=== PATIENT | male | born 1945 | race Caucasian/White ===

== ENCOUNTER → 2016-10-05 | Outpatient (CLI) | payer BC ==
[~2016-10-05] MED LIST: AMLO-110 PO; ASPI81TA28 PO; ATOR-24 PO; CHOL200027 PO; CHOL20007 PO; CINA0.42 PO; CIPR-255 PO; CIPR1TAB11 PO; CYAN10005 PO; GLC/500 PO; GLIM1TAB2 PO; INSUINJ12 SC; LISI-794 PO; LOSA1TAB38 PO; LVMI SC; METF-384 PO; MULT-506 PO; OXYC-57 PO; PLV75 PO; SITA50TA5 PO; TUMERIC PO; TURM1CAP4 PO
[2016-10-05 12:55] LABS: ESTIMATED AVERAGE GLUCOSE 197 mg/dl; HA1C FLAG Normal (Normal)
== END | disposition home or self-care (01) ==
LOC: C.LABPBG 10:57
PROVIDERS: ATTEND Internal Medicine Endocrinology, Diabetes & Metabolism
DX: E11.9 Type 2 diabetes mellitus without complications (principal); E83.52 Hypercalcemia

== ENCOUNTER → 2016-10-09 | Outpatient (CLI) | payer BC ==
--- NOTE | 2016-10-09 12:56 | DIAGNOSTIC IMAGING REPORT ---
RIGHT HIP 2 VIEWS HISTORY: Hip pain, right Right COMPARISON: None. FINDINGS: There is no fracture or dislocation. Soft tissues are unremarkable. The visualized pelvic bones are intact. Vascular calcifications are noted. Mild cartilage space narrowing and marginal osteophytes within the right hip. There is also subchondral sclerosis within the superior aspect of the right hip. Findings are consistent with degenerative change. IMPRESSION: No fractures. Mild osteoarthritis within the right hip. Electronically signed by: Jim Albright M.D. 10/09/2016 12:54 PM Dictated Date/Time: 10/09/2016 12:53 PM
--- NOTE | 2016-10-09 12:57 | DIAGNOSTIC IMAGING REPORT ---
SI JOINTS 3 OR MORE VIEWS CLINICAL HISTORY: Right hip and lower back pain COMPARISON STUDY: No previous studies for comparison. FINDINGS: No fractures are visualized. There is no SI joint fusion. There are no erosive changes. IMPRESSION: Age-related change. No evidence of fracture. No evidence of erosive disease. Electronically signed by: Jun Hsu M.D. 10/09/2016 12:55 PM Dictated Date/Time: 10/09/2016 12:54 PM
== END | disposition home or self-care (01) ==
LOC: C.RADBC 12:17
PROVIDERS: ATTEND Physician Assistant Medical
DX: M25.551 Pain in right hip (principal)

== ENCOUNTER → 2016-11-23 | Outpatient (CLI) | payer BC ==
[2016-11-23 17:21] LABS: BASO % 0.3 %; BASO ABS # 0.02 K/uL (0-0.2); COMPLETE YES; EOS % 2.6 %; HEMATOCRIT 40.1 % (42-52); IG% 0.2 %; LYMPH % 39.9 %; LYMPH ABS # 2.59 K/uL (1.2-3.4); MEAN CELL VOLUME 93.9 fL (80-100); MEAN CORPUSCULAR HEMOGLOBIN 31.1 pg (25-34); MEAN CORPUSCULAR HGB CONC 33.2 g/dl (32-36); MEAN PLATELET VOLUME 10.6 fL (7.4-10.4); MONO % 7.7 %; NEUT % 49.3 %; PLATELET COUNT 163 K/uL (130-400); RED BLOOD COUNT 4.27 M/uL (4.7-6.1); WHITE BLOOD COUNT 6.49 K/uL (4.8-10.8)
[2016-11-23 17:35] LABS: BLOOD UREA NITROGEN 17 mg/dl (7-18); BUN/CREATININE RATIO 14.5 (10-20); CALCIUM 9.6 mg/dl (8.5-10.1); CARBON DIOXIDE 25 mmol/L (21-32); CHLORIDE 111 mmol/L (98-107); GLUCOSE 138 mg/dl (70-99); POTASSIUM 4.2 mmol/L (3.5-5.1); SODIUM 145 mmol/L (136-145)
[2016-11-24 06:36] LABS: ESTIMATED AVERAGE GLUCOSE 169 mg/dl; HA1C FLAG Normal (Normal)
== END | disposition home or self-care (01) ==
LOC: C.LABPBG 14:49
PROVIDERS: ATTEND Internal Medicine Endocrinology, Diabetes & Metabolism
DX: I10 Essential (primary) hypertension (principal); M19.90 Unspecified osteoarthritis, unspecified site; E11.9 Type 2 diabetes mellitus without complications; D64.9 Anemia, unspecified; E55.9 Vitamin D deficiency, unspecified; E83.52 Hypercalcemia

== ENCOUNTER 2017-03-22 07:42 | Inpatient (IN) | payer BC, OTHER ==
[~2017-03-22] VITALS: Ht 175.3 cm; Wt 89.0 kg
[~2017-03-22 07:42] MED LIST changes: -CHOL200027 PO; -CYAN10005 PO; -GLC/500 PO; -LOSA1TAB38 PO; -LVMI SC; -METF-384 PO; -MULT-506 PO; -PLV75 PO; -TUMERIC PO; -TURM1CAP4 PO
[2017-03-22] MEDS ORDERED: ATOR-24 PO (08:15)
[2017-03-22] MEDS ORDERED: MULT-506 PO (08:15)
[2017-03-22] MEDS ORDERED: GLC/500 PO (08:15)
[2017-03-22] MEDS ORDERED: AMLO-110 PO (08:15)
[2017-03-22] MEDS ORDERED: CYAN10005 PO (08:15)
[2017-03-22] MEDS ORDERED: CHOL200027 PO (08:15)
[2017-03-22] MEDS ORDERED: TUMERIC PO (08:15)
[2017-03-22] MEDS ORDERED: METF-384 PO (08:15)
[2017-03-22] MEDS ORDERED: ASPI81TA28 PO (08:15)
[2017-03-22] MEDS ORDERED: LOSA1TAB38 PO (08:15)
[2017-03-22] MEDS ORDERED: LVMI SC (08:15)
[2017-03-22] MEDS ORDERED: TURM1CAP4 PO (08:17)
--- NOTE | 2017-03-22 08:18 | DIAGNOSTIC IMAGING REPORT ---
CT SCAN OF THE BRAIN WITHOUT IV CONTRAST CLINICAL HISTORY: Weakness. Change in mental status. COMPARISON STUDY: No priors. TECHNIQUE: Unenhanced axial CT scan of the brain is performed from the vertex to the skull base. CT DOSE: 537.48 mGy.cm FINDINGS: Brain parenchyma: There are age-related involutional changes noting mild subcortical and periventricular microangiopathic change. A small focus of left cerebellar encephalomalacia is consistent with a remote infarct. An age indeterminant lacunar infarct is also seen in the left basal ganglia. There is no hemorrhage, mass effect, or evidence of acute territorial ischemia by CT criteria. Rob-white matter is preserved. No extra-axial fluid collection is seen. Ventricles, sulci, cisterns: Prominent secondary to involutional change. Intracranial vasculature: There is atherosclerotic calcification of the cavernous carotid arteries. Calvarium: Unremarkable. Sinuses and mastoids: The visualized paranasal sinuses are clear. The mastoid air cells are well pneumatized. Orbits: The bony orbits are grossly intact. IMPRESSION: There is no hemorrhage, mass effect, or evidence of acute territorial ischemia by CT criteria. Electronically signed by: Petey Sosa M.D. 03/22/2017 8:16 AM Dictated Date/Time: 03/22/2017 8:12 AM
[2017-03-22 08:22] LABS: BASO % 0.6 %; BASO ABS # 0.03 K/uL (0-0.2); COMPLETE YES; EOS % 2.4 %; HEMATOCRIT 41.7 % (42-52); IG% 0.4 %; LYMPH ABS # 2.16 K/uL (1.2-3.4); MEAN CELL VOLUME 92.3 fL (80-100); MEAN CORPUSCULAR HEMOGLOBIN 30.5 pg (25-34); MEAN CORPUSCULAR HGB CONC 33.1 g/dl (32-36); MEAN PLATELET VOLUME 10.3 fL (7.4-10.4); MONO % 7.2 %; NEUT % 49.4 %; PLATELET COUNT 156 K/uL (130-400); RED BLOOD COUNT 4.52 M/uL (4.7-6.1)
--- NOTE | 2017-03-22 08:23 | DIAGNOSTIC IMAGING REPORT ---
SINGLE VIEW CHEST CLINICAL HISTORY: Weakness. Change in mental status. FINDINGS: An AP, portable, upright chest radiograph is compared to study dated 04/25/2015. The cardiomediastinal silhouette is unremarkable. There is atherosclerotic calcification of the thoracic aorta. There is mild elevation of left hemidiaphragm with left basilar atelectasis. No airspace consolidation is seen typical for pneumonia and there is no large pleural effusion. No pneumothorax is seen. The bony thorax is grossly intact. IMPRESSION: No acute cardiopulmonary abnormality. Electronically signed by: Petey Sosa M.D. 03/22/2017 8:22 AM Dictated Date/Time: 03/22/2017 8:21 AM
[2017-03-22 08:27] LABS: URINE APPEARANCE CLEAR (CLEAR); URINE BILIRUBIN NEG (NEG); URINE COLOR YELLOW; URINE EPITHELIAL CELL AUTO 0-5 /lpf (0-5); URINE NITRITE NEG (NEG); UROBILINOGEN NEG (NEG); ZZUR CULT IF INDIC CLEAN CATCH NO
[2017-03-22 08:28] LABS: MANUAL MICROSCOPIC REQUIRED? NO; REVIEW REQ? YES
[2017-03-22 08:30] LABS: PROTHROMBIN TIME (PATIENT) 10.7 SECONDS (9.0-12.0)
[2017-03-22 08:47] LABS: ALT/SGPT 31 U/L (12-78); BLOOD UREA NITROGEN 13 mg/dl (7-18); BUN/CREATININE RATIO 12.9 (10-20); CALCIUM 9.7 mg/dl (8.5-10.1); CARBON DIOXIDE 23 mmol/L (21-32); CHLORIDE 110 mmol/L (98-107); GLUCOSE 194 mg/dl (70-99); MAGNESIUM 1.5 mg/dl (1.8-2.4); POTASSIUM 3.8 mmol/L (3.5-5.1); SODIUM 142 mmol/L (136-145)
[2017-03-22 08:55] LABS: ALKALINE PHOSPHATASE 86 U/L (45-117); AST/SGOT 34 U/L (15-37); CKMB/CK RATIO 0.7 (0-3.0)
[2017-03-22] MEDS ORDERED: ACETAMINOPHEN 325 MG TAB PO STA (09:16)
--- NOTE | 2017-03-22 09:24 | History and Physical ---
History & Physical Date & Time of Service: Mar 22, 2017 at 09:09 Chief Complaint: No Movement In Right Hand Primary Care Physician: Brando Bourgeois M.D. History of Present Illness Mr. Lambert noticed at 5:30 this morning that he was experiencing right hand weakness when using his remote control. He also had associated right facial droop. He did not have any aphasia or slurring of speech or other symptoms and his did not notice that he was different. He took a baby aspirin at home. Symptoms resolved after getting to the emergency department at about 0800. He has never had a stroke or TIA in the past and has no cardiac history. Hx DMII with insulin, chews tobacco x 60 years, htn, hyperlipidemia, siatica with 3 injections in the past 2 months, right knee arthroplasty 2010, Justice's cyst right leg. Past Medical/Surgical History Medical Problems: (1) Diabetes Status: Chronic (2) HTN (hypertension) Status: Chronic (3) Hyperlipemia Status: Chronic Surgical Problems: (1) H/O: knee surgery Status: Resolved Family History Patient reports no known family medical history. Mother of Alzheimers Father of old age Brother with no significant medical history Two daughters and a son - one daughter and one son are diabetic Type II Granddaughter with Type I diabetes. Social History Smoking Status: Never Smoker Smokeless Tobacco Use: Yes Alcohol Use: socially Drug Use: none Marital Status: Housing status: lives with significant other Occupational Status: retired Immunizations History of Influenza Vaccine: Yes Influenza Vaccine Date: Mar 31, 2006 History of Tetanus Vaccine?: Yes History of Pneumococcal: Yes Pneumococcal Date: Mar 31, 2006 History of Hepatitis B Vaccine: No Multi-Drug Resistant Organisms History of MDRO: No Allergies Coded Allergies: No Known Allergies (Verified , 03/22/17) Home Medications Scheduled Amlodipine (Norvasc), 5 MG PO DAILY Aspirin (Aspirin Ec), 81 MG PO DAILY Atorvastatin (Lipitor), 40 MG PO DAILY Cholecalciferol (Vitamin D-3), 2,000 UNITS PO DAILY Cyanocobalamin (Vitamin B-12), 1,000 MCG PO DAILY Insulin Detemir (Levemir), 50 UNITS SC BID Losartan Potassium (Cozaar), 100 MG PO DAILY Metformin Hcl (Glucophage), 500 MG PO QAM Metformin Hcl (Glucophage), 1,000 MG PO QPM Multivitamin (Multivitamin), 1 TAB PO DAILY Turmeric (Curcuma Longa) (Turmeric), 500 MG PO DAILY Review of Systems Constitutional: No chills, No sweats Eyes: No worsening of vision Respiratory: No shortness of breath Cardiovascular: No chest pain Abdomen: No nausea, No vomiting, No diarrhea, No constipation Neurologic: + weakness, + numbness/tingling Physical Exam Vital Signs Date Time Temp Pulse Resp B/P (MAP) Pulse Ox O2 Delivery O2 Flow Rate FiO2 03/22/17 09:07 62 20 146/82 99 Room Air 03/22/17 08:02 59 03/22/17 07:43 36.6 77 20 166/96 97 Room Air General: no distress Eyes: normal inspection, PERLL Respiratory: chest non tender, clear to auscultation, normal breath sounds, no respiratory distress, no accessory muscle use Cardiac: regular rate and rhythm, no rub or gallop, no murmur, no edema, no jvd GI/: active bowel sounds, no abd pain or tenderness, soft, non distended Extremities: normal range of motion, normal strength, non tender Neuro/Psych: alert and oriented x 3, normal mood and affect Skin: normal color, dry Diagnostics Laboratory Results Results Past 24 Hours Test 03/22/17 08:00 Range/Units White Blood Count 5.40 4.8-10.8 K/uL Red Blood Count 4.52 4.7-6.1 M/uL Hemoglobin 13.8 14.0-18.0 g/dL Hematocrit 41.7 42-52 % Mean Corpuscular Volume 92.3 80-100 fL Mean Corpuscular Hemoglobin 30.5 25-34 pg Mean Corpuscular Hemoglobin Concent 33.1 32-36 g/dl Platelet Count 156 130-400 K/uL Mean Platelet Volume 10.3 7.4-10.4 fL Neutrophils (%) (Auto) 49.4 % Lymphocytes (%) (Auto) 40.0 % Monocytes (%) (Auto) 7.2 % Eosinophils (%) (Auto) 2.4 % Basophils (%) (Auto) 0.6 % Neutrophils # (Auto) 2.67 1.4-6.5 K/uL Lymphocytes # (Auto) 2.16 1.2-3.4 K/uL Monocytes # (Auto) 0.39 0.11-0.59 K/uL Eosinophils # (Auto) 0.13 0-0.5 K/uL Basophils # (Auto) 0.03 0-0.2 K/uL RDW Standard Deviation 43.3 36.4-46.3 fL RDW Coefficient of Variation 12.9 11.5-14.5 % Immature Granulocyte % (Auto) 0.4 % Immature Granulocyte # (Auto) 0.02 0.00-0.02 K/uL Prothrombin Time 10.7 9.0-12.0 SECONDS Prothromb Time International Ratio 1.0 0.9-1.1 Activated Partial Thromboplast Time 25.0 21.0-31.0 SECONDS Partial Thromboplastin Ratio 1.0 Urine Color YELLOW Urine Appearance CLEAR CLEAR Urine pH 5.0 4.5-7.5 Urine Specific [place] 1.030 1.000-1.030 Urine Protein NEG NEG Urine Glucose (UA) 2+ NEG Urine Ketones TRACE NEG Urine Occult Blood NEG NEG Urine Nitrite NEG NEG Urine Bilirubin NEG NEG Urine Urobilinogen NEG NEG Urine Leukocyte Esterase NEG NEG Urine WBC (Auto) 1-5 0-5 /hpf Urine RBC (Auto) 0-4 0-4 /hpf Urine Hyaline Casts (Auto) 0 0-5 /lpf Urine Epithelial Cells (Auto) 0-5 0-5 /lpf Urine Bacteria (Auto) NEG NEG Urine Crystals CALCIUM OXALATE NONE PRSENT Sodium Level 142 136-145 mmol/L Potassium Level 3.8 3.5-5.1 mmol/L Chloride Level 110 98-107 mmol/L Carbon Dioxide Level 23 21-32 mmol/L Anion Gap 9.0 3-11 mmol/L Blood Urea Nitrogen 13 7-18 mg/dl Creatinine 1.00 0.60-1.40 mg/dl Est Creatinine Clear Calc Drug Dose 75.6 ml/min Estimated GFR () 87.4 Estimated GFR (Non- 75.4 BUN/Creatinine Ratio 12.9 10-20 Random Glucose 194 70-99 mg/dl Calcium Level 9.7 8.5-10.1 mg/dl Magnesium Level 1.5 1.8-2.4 mg/dl Total Bilirubin 0.8 0.2-1 mg/dl Direct Bilirubin 0.2 0-0.2 mg/dl Aspartate Amino Transf (AST/SGOT) 34 15-37 U/L Alanine Aminotransferase (ALT/SGPT) 31 12-78 U/L Alkaline Phosphatase 86 45-117 U/L Total Creatine Kinase 86 39-308 U/L Creatine Kinase MB 0.6 0.5-3.6 ng/ml Creatine Kinase MB Ratio 0.7 0-3.0 Troponin I < 0.015 0-0.045 ng/ml Total Protein 7.4 6.4-8.2 gm/dl Albumin 4.0 3.4-5.0 gm/dl Lipase 524 73-393 U/L Thyroid Stimulating Hormone (TSH) 2.520 0.300-4.500 uIu/ml Diagnostic Radiology SINGLE VIEW CHEST CLINICAL HISTORY: Weakness. Change in mental status. FINDINGS: An AP, portable, upright chest radiograph is compared to study dated 04/25/2015. The cardiomediastinal silhouette is unremarkable. There is atherosclerotic calcification of the thoracic aorta. There is mild elevation of left hemidiaphragm with left basilar atelectasis. No airspace consolidation is seen typical for pneumonia and there is no large pleural effusion. No pneumothorax is seen. The bony thorax is grossly intact. IMPRESSION: No acute cardiopulmonary abnormality. CT SCAN OF THE BRAIN WITHOUT IV CONTRAST CLINICAL HISTORY: Weakness. Change in mental status. COMPARISON STUDY: No priors. TECHNIQUE: Unenhanced axial CT scan of the brain is performed from the vertex to the skull base. CT DOSE: 537.48 mGy.cm FINDINGS: Brain parenchyma: There are age-related involutional changes noting mild subcortical and periventricular microangiopathic change. A small focus of left cerebellar encephalomalacia is consistent with a remote infarct. An age indeterminant lacunar infarct is also seen in the left basal ganglia. There is no hemorrhage, mass effect, or evidence of acute territorial ischemia by CT criteria. Rob-white matter is preserved. No extra-axial fluid collection is seen. Ventricles, sulci, cisterns: Prominent secondary to involutional change. Intracranial vasculature: There is atherosclerotic calcification of the cavernous carotid arteries. Calvarium: Unremarkable. Sinuses and mastoids: The visualized paranasal sinuses are clear. The mastoid air cells are well pneumatized. Orbits: The bony orbits are grossly intact. IMPRESSION: There is no hemorrhage, mass effect, or evidence of acute territorial ischemia by CT criteria. Impression Assessment and Plan Mr. Lambert is a 71 year old man here for TIA. His symptoms which included right hand weakness and right facial droop lasted about two hours and have resolved at this point. CT of the head showed a remote left cerebellar infarct and left age indeterminate basal ganglia lacunar infarct. TIA - admit observation to the telemetry unit - A1c, lipids, troponin, prp and cbc in the morning - MRI head, carotid doppler, echocardiogram - continue ASA - AHA diet HTN - home htn meds held for now. 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 Discussed with yCn Bourgeois NP and agree with findings and plan as documented in the note. Any exceptions or clarifications are listed here: None Patient presented with transient neurological symptoms found to have fairly poorly controlled diabetes and a new evidence of likely embolic stroke. Vital signs are stable No evidence of recurrent neurological dysfunction will continue with secondary stroke prevention neurologic consult. It escalated his aspirin to full dose continuing high potency statin, no significant carotid disease or embolic source seen within heart although intra-arterial shunt could not be determined on transthoracic echo After PT OT evaluation the patient may return home with close outpatient follow- up Documented By: Eliseo Fernandez Advanced Directives Existing Advance Directive: No Existing Living Will: No Existing Power of Caretaker Grounds: No Existing Health Care Proxy: No Resuscitation Status FULL RESUSCITATION (does not want life support if there is no chance of meaningful recovery) VTE Prophylaxis Risk Level: Moderate Given or contraindicated: Enoxaparin (Lovenox)SQ Social Service Consult None Apply
[2017-03-22] MEDS ORDERED: PHARMACIST DISCHARGE MED REC CONSULT PRN (09:45)
[2017-03-22 09:57] VITALS: O2SAT 99; BMI 29.6
[2017-03-22] MEDS ORDERED: HydrALAZINE HCL 20 MG/ML VIAL IV. PRN (10:15)
[2017-03-22] MEDS ORDERED: LORAZEPAM 2 MG/ML 1 ML VIAL IV STA (10:21)
--- NOTE | 2017-03-22 10:37 | EMERGENCY ROOM VISIT NOTE ---
History Report prepared by Criselda: Pratik Burks Under the Supervision of: Dr. Bo Lisa D.O. First contact with patient: 07:54 Chief Complaint: STROKE SYMPTOMS Stated Complaint: NO MOVEMENT IN RIGHT HAND Nursing Triage Summary: patient states about 0600 today he woke up and was unable to bobj developer things with his right hand. I think the right side of my face was drooping as well. symptoms lasted about 30 mins. my right hand still feels numb and weak. History of Present Illness The patient is a 71 year old male who presents to the Emergency Room with complaints of improving right hand neurologic symptoms beginning 2.5 hours ago. The patient's symptoms include weakness and numbness. He states that he was unable to move his fingers, and was unable to operate the TV remote. He notes that his entire arm felt abnormal as well. The patient states that he woke up three hours ago, and noticed his symptoms about a half hour later. He also complains of resolved mild right sided facial droop and problems with balance. He denies any visual changes, confusion, or slurred speech. The patient is on baby aspirin, but denies any other blood thinner use. Source of History: patient Onset: 2.5 hours ago Position: hand (right) Quality: numbness, other (weakness) Timing: other (improving) Note: The patient also complains of resolved mild right sided facial droop and problems with balance. He denies any visual changes, confusion, or slurred speech. Review of Systems See HPI for pertinent positives & negatives. A total of 10 systems reviewed and were otherwise negative. Past Medical & Surgical Medical Problems: (1) Diabetes (2) HTN (hypertension) (3) Hyperlipemia (4) TIA (transient ischemic attack) Surgical Problems: (1) H/O: knee surgery Family History Patient reports no known family medical history. Social History Smoking Status: Never Smoker Marital Status: Housing Status: lives with family Occupation Status: retired Current/Historical Medications Scheduled Amlodipine (Norvasc), 5 MG PO DAILY Aspirin (Aspirin Ec), 81 MG PO DAILY Atorvastatin (Lipitor), 40 MG PO DAILY Cholecalciferol (Vitamin D-3), 2,000 UNITS PO DAILY Cyanocobalamin (Vitamin B-12), 1,000 MCG PO DAILY Insulin Detemir (Levemir), 50 UNITS SC BID Losartan Potassium (Cozaar), 100 MG PO DAILY Metformin Hcl (Glucophage), 500 MG PO QAM Metformin Hcl (Glucophage), 1,000 MG PO QPM Multivitamin (Multivitamin), 1 TAB PO DAILY Turmeric (Curcuma Longa) (Turmeric), 500 MG PO DAILY Allergies Coded Allergies: No Known Allergies (Verified , 03/22/17) Physical Exam Vital Signs Date Time Temp Pulse Resp B/P (MAP) Pulse Ox O2 Delivery O2 Flow Rate FiO2 03/22/17 09:57 99 Room Air 03/22/17 09:46 62 20 152/74 99 Room Air 03/22/17 09:07 62 20 146/82 99 Room Air 03/22/17 08:02 59 03/22/17 07:43 36.6 77 20 166/96 97 Room Air Physical Exam VITAL SIGNS: were reviewed as above. GENERAL:Non-toxic in appearance. SKIN: Warm dry and pink. HEAD: Normocephalic and atraumatic. OROPHARYNX: Is clear and moist NECK: Supple without lymphadenopathy or meningismus. LUNGS: clear. HEART: Regular rate and rhythm. ABDOMEN: Soft and nontender. EXTREMITIES: Warm and well perfused. NEUROLOGICALLY: Awake alert and oriented without focal deficit. Cranial nerves 2 -12 are intact. There is no pronator drift. Cerebellar testing is within normal limits. There is no nystagmus. There is no facial droop. Speech is clear. Vision is grossly normal. MUSCULOSKELETAL: Good muscle tone. No evidence of trauma. Medical Decision & Procedures ER Provider Diagnostic Interpretation: Radiology results as stated below per my review and radiologist interpretation: CT SCAN OF THE BRAIN WITHOUT IV CONTRAST FINDINGS: Brain parenchyma: There are age-related involutional changes noting mild subcortical and periventricular microangiopathic change. A small focus of left cerebellar encephalomalacia is consistent with a remote infarct. An age indeterminant lacunar infarct is also seen in the left basal ganglia. There is no hemorrhage, mass effect, or evidence of acute territorial ischemia by CT criteria. Rob-white matter is preserved. No extra-axial fluid collection is seen. Ventricles, sulci, cisterns: Prominent secondary to involutional change. Intracranial vasculature: There is atherosclerotic calcification of the cavernous carotid arteries. Calvarium: Unremarkable. Sinuses and mastoids: The visualized paranasal sinuses are clear. The mastoid air cells are well pneumatized. Orbits: The bony orbits are grossly intact. IMPRESSION: There is no hemorrhage, mass effect, or evidence of acute territorial ischemia by CT criteria. Electronically signed by: Petey Sosa M.D. 03/22/2017 8:16 AM SINGLE VIEW CHEST FINDINGS: An AP, portable, upright chest radiograph is compared to study dated 04/25/2015. The cardiomediastinal silhouette is unremarkable. There is atherosclerotic calcification of the thoracic aorta. There is mild elevation of left hemidiaphragm with left basilar atelectasis. No airspace consolidation is seen typical for pneumonia and there is no large pleural effusion. No pneumothorax is seen. The bony thorax is grossly intact. IMPRESSION: No acute cardiopulmonary abnormality. Electronically signed by: Petey Sosa M.D. 03/22/2017 8:22 AM Laboratory Results 03/22/17 08:00 Red Blood Count 4.52, Mean Corpuscular Volume 92.3, Mean Corpuscular Hemoglobin 30.5, Mean Corpuscular Hemoglobin Concent 33.1, Mean Platelet Volume 10.3, Neutrophils (%) (Auto) 49.4, Lymphocytes (%) (Auto) 40.0, Monocytes (%) (Auto) 7.2, Eosinophils (%) (Auto) 2.4, Basophils (%) (Auto) 0.6, Neutrophils # (Auto) 2.67, Lymphocytes # (Auto) 2.16, Monocytes # (Auto) 0.39, Eosinophils # (Auto) 0.13, Basophils # (Auto) 0.03 03/22/17 08:00 Test 03/22/17 08:00 03/22/17 09:32 White Blood Count 5.40 K/uL (4.8-10.8) Red Blood Count 4.52 M/uL (4.7-6.1) Hemoglobin 13.8 g/dL (14.0-18.0) Hematocrit 41.7 % (42-52) Mean Corpuscular Volume 92.3 fL (80-100) Mean Corpuscular Hemoglobin 30.5 pg (25-34) Mean Corpuscular Hemoglobin Concent 33.1 g/dl (32-36) Platelet Count 156 K/uL (130-400) Mean Platelet Volume 10.3 fL (7.4-10.4) Neutrophils (%) (Auto) 49.4 % Lymphocytes (%) (Auto) 40.0 % Monocytes (%) (Auto) 7.2 % Eosinophils (%) (Auto) 2.4 % Basophils (%) (Auto) 0.6 % Neutrophils # (Auto) 2.67 K/uL (1.4-6.5) Lymphocytes # (Auto) 2.16 K/uL (1.2-3.4) Monocytes # (Auto) 0.39 K/uL (0.11-0.59) Eosinophils # (Auto) 0.13 K/uL (0-0.5) Basophils # (Auto) 0.03 K/uL (0-0.2) RDW Standard Deviation 43.3 fL (36.4-46.3) RDW Coefficient of Variation 12.9 % (11.5-14.5) Immature Granulocyte % (Auto) 0.4 % Immature Granulocyte # (Auto) 0.02 K/uL (0.00-0.02) Prothrombin Time 10.7 SECONDS (9.0-12.0) Prothromb Time International Ratio 1.0 (0.9-1.1) Activated Partial Thromboplast Time 25.0 SECONDS (21.0-31.0) Partial Thromboplastin Ratio 1.0 Urine Color YELLOW Urine Appearance CLEAR (CLEAR) Urine pH 5.0 (4.5-7.5) Urine Specific [place] 1.030 (1.000-1.030) Urine Protein NEG (NEG) Urine Glucose (UA) 2+ (NEG) Urine Ketones TRACE (NEG) Urine Occult Blood NEG (NEG) Urine Nitrite NEG (NEG) Urine Bilirubin NEG (NEG) Urine Urobilinogen NEG (NEG) Urine Leukocyte Esterase NEG (NEG) Urine WBC (Auto) 1-5 /hpf (0-5) Urine RBC (Auto) 0-4 /hpf (0-4) Urine Hyaline Casts (Auto) 0 /lpf (0-5) Urine Epithelial Cells (Auto) 0-5 /lpf (0-5) Urine Bacteria (Auto) NEG (NEG) Urine Crystals CALCIUM OXALATE (NONE Anion Gap 9.0 mmol/L (3-11) Est Creatinine Clear Calc Drug Dose 75.6 ml/min Estimated GFR () 87.4 Estimated GFR (Non- 75.4 BUN/Creatinine Ratio 12.9 (10-20) Calcium Level 9.7 mg/dl (8.5-10.1) Magnesium Level 1.5 mg/dl (1.8-2.4) Total Bilirubin 0.8 mg/dl (0.2-1) Direct Bilirubin 0.2 mg/dl (0-0.2) Aspartate Amino Transf (AST/SGOT) 34 U/L (15-37) Alanine Aminotransferase (ALT/SGPT) 31 U/L (12-78) Alkaline Phosphatase 86 U/L (45-117) Total Creatine Kinase 86 U/L (39-308) Creatine Kinase MB 0.6 ng/ml (0.5-3.6) Creatine Kinase MB Ratio 0.7 (0-3.0) Troponin I < 0.015 ng/ml (0-0.045) Total Protein 7.4 gm/dl (6.4-8.2) Albumin 4.0 gm/dl (3.4-5.0) Lipase 524 U/L (73-393) Thyroid Stimulating Hormone (TSH) 2.520 uIu/ml (0.300-4.500) Laboratory results as stated above per my review. Medications Administered Medications (Trade) Dose Ordered Sig/Mat Route Start Time Stop Time Status Last Admin Dose Admin Acetaminophen (Tylenol Tab) 650 mg NOW STAT PO 03/22/17 09:16 03/22/17 09:40 DC 03/22/17 09:43 650 MG ECG Indication: other (neurologic symptoms ) Rate (beats per minute): 62 Rhythm: sinus rhythm Findings: PAC, no acute ischemic change ED Course 0817: Previous medical records were reviewed. The patient was evaluated in room B12B. A complete history and physical examination was performed. 0850: On reevaluation, the patient is resting comfortably. I discussed the results and findings with him. He verbalized agreement of the treatment plan. I spoke with Dr. Fernandez of the [facility] Hospitalist Service. The patient will be evaluated for further management and care. Medical Decision Differential includes acute coronary syndrome, myocardial infarction, CVA, TIA, anemia, infection, pneumonia, UTI, pyelonephritis, poor nutrition, dehydration, electrolyte disturbance,hypoglycemia. This is a 71-year-old male who presents to the ED with a chief complaint of CVA- like symptoms. The patient states that around 6 AM he developed a sudden onset of loss of function of his right hand and felt weak in his arm and slight facial droop in his right face. He may have also felt weakness in his right leg but this was more difficult for him to tell due to some chronic issues with his right leg. The patient states that he took some aspirin and came to the ED for evaluation. His initial blood pressure was slightly elevated at 166/96. The patient states that his symptoms have improved upon my evaluation. His complete neuro exam on my evaluation was normal. He states that he has now regained use of his arm and hand. A CT scan of the brain did not show acute process. A chest x-ray is negative for acute disease. Blood work including a CBC and chemistry panel was unremarkable. Urine did not show infection. EKG shows a normal sinus rhythm. The patient was told the results. Because of his symptoms, the patient was seen for further inpatient evaluation and care. Consults Time Called: [phone] Consulting Physician: Dr. Fernandez -[facility] Returned Call: [phone] Discussed the patient's case. The patient will be evaluated for further treatment and disposition. Impression Primary Impression: TIA (transient ischemic attack) Scribe Attestation The scribe's documentation has been prepared under my direction and personally reviewed by me in its entirety. I confirm that the note above accurately reflects all work, treatment, procedures, and medical decision making performed by me. Departure Information Dispostion Being Evaluated By Hospitalist Brando Ramirez M.D. (PCP) Patient Instructions My [facility]
[2017-03-22] MEDS: INSULIN ASPART 100 UNITS/ML 3 ML PEN SC SCH ×3 (11:00→20:34)
[2017-03-22] MEDS ORDERED: PERFLUTREN LIPID MICROSPHERE (DEFINITY) IV ONE (11:25)
[2017-03-22 11:30] VITALS: BP 174/83; PULSE 57; TEMP 36.7; O2SAT 94
--- NOTE | 2017-03-22 11:32 | DIAGNOSTIC IMAGING REPORT ---
ULTRASOUND OF THE CAROTID ARTERIES CLINICAL HISTORY: Transient ischemic attack COMPARISON STUDY: None. TECHNIQUE: Real-time, grayscale, and color Doppler sonography of the carotid arteries was performed. Imaging reviewed in the transverse and longitudinal planes. NASCET criteria was utilized for stenosis calcification. FINDINGS: There is mild to moderate atherosclerotic plaque present . The peak systolic velocity within the right internal carotid artery is 75 cm/sec. The systolic velocity ratio of right internal to common carotid artery is 1.1. The peak systolic velocity within the left internal carotid artery is 63 cm/sec. The systolic velocity ratio left internal to common carotid artery is 1.1. Antegrade flow is seen in the vertebral arteries. The external carotid arteries are patent. . IMPRESSION: No evidence of hemodynamically significant carotid stenosis. Electronically signed by: Jun Hsu M.D. 03/22/2017 11:31 AM Dictated Date/Time: 03/22/2017 11:29 AM
[2017-03-22] MEDS ORDERED: DEXTROSE 50% 50 ML SYR IV PRN (11:45)
[2017-03-22] MEDS ORDERED: GLUCAGON FOR INJ 1 MG VIAL SQ PRN (11:45)
[2017-03-22] MEDS ORDERED: GLUCOSE 40% GEL 15 GM TUBE PO PRN (11:45)
[2017-03-22] MEDS ORDERED: GLUCOSE 10 TABS/TUBE PO PRN (11:45)
--- NOTE | 2017-03-22 12:07 | ECHOCARDIOGRAM REPORT ---
*NOTICE TO RECEIVING REPUBLICAN AGENCY This information is strictly Confidential and protected under [place] law. [place] law prohibits you from making any further disclosure of this information unless further disclosure is expressly permitted by the written consent of the person to whom it pertains or is authorized by law. A general authorization for the release of medical or other information is not sufficient for this purpose. Hospital accepts no responsibility if the information is made available to any other person, INCLUDING THE PATIENT. Interpretation Summary * Name: ROSLYN GAMBINO Study Date: 03/22/2017 10:15 AM BP: 152/74 mmHg * Patient Location: C.EDB HR: 62 * : 1945 (M/d/yyyy) Gender: Male Height: 69 in * Age: 71 yrs Ethnicity: CA Weight: 200 lb * Ordering Physician: Su Bourgeois * Performed By: Marina Cavazos * * Reason For Study: CEREBRAL ISCHEMIA/ EMBOLUS * BSA: 2.1 m2 * -- Conclusions -- * 1. Normal LV size, normal LV wall thickness. * 2. Normal LV function. LVEF 55-60%. Abnormal septal motion consistent with RV volume overload. * 3. Mildly dilated RV, normal RV function. * 4. Mild aortic regurgitation. * 5. Technically difficult saline contrast study - unable to rule out interatrial shunt. * 6. Mildly dilated ascending aorta (4.6 cm). * 7. No prior studies for comparison. Procedure Details * A complete two-dimensional transthoracic echocardiogram was performed (2D, M-mode, Doppler and color flow Doppler). * A saline contrast injection was performed to assess for cardiac shunting. * The injection was performed through an intravenous line in the left arm. * The attending nurse who injected the saline contrast was LAURA JARAMILLO RN. * A total of 20 cc of agitated saline was given. * A contrast injection of Definity was performed to improve assessment of LV function. * Contrast was injected into an intravenous site in the left arm. * One vial of Definity ultrasound contrast was diluted in normal saline to a total volume of 10 ml. A total of '3' ml of solution was administered during imaging. * Lot # [id number] of Definity utilized for procedure. * Expiration date 03/31. * The attending nurse who injected the contrast agent was LAURA JARAMILLO RN. Left Ventricle * The left ventricle is grossly normal size. * There is normal left ventricular wall thickness. * Ejection Fraction = 55-60%. * Paradoxical septal motion is consistent with right ventricular volume overload. Right Ventricle * The right ventricle is mildly dilated. * The right ventricular systolic function is normal as assessed by tricuspid annular plane systolic excursion (TAPSE) (normal >1.5 cm). Atria * The left atrial size is normal. * The right atrium is moderately dilated. * There is no evidence of atrial septal defect, but resolution does not allow assessment for a patent foramen ovale. * Saline contrast study performed - unable to rule out interatrial shunt. Mitral Valve * The mitral valve is grossly normal. * There is no mitral valve stenosis. * There is trace mitral regurgitation. Tricuspid Valve * The tricuspid valve is not well visualized. * Significant tricuspid regurgitation is absent. Aortic Valve * The aortic valve opens well. * No hemodynamically significant valvular aortic stenosis. * Mild aortic regurgitation. Pulmonic Valve * The pulmonary valve is inadequately visualized, but the Doppler data is adequate for interpretation. * Pulmonic stenosis is absent. Great Vessels * Mildly dilated ascending aorta. * Ascending aorta 4.6 cm Pericardium/Pleural * There is no pericardial effusion. Great Vessels * IVC > 2.1, >50% change with respiration. MMode 2D Measurements and Calculations IVSd 1.2 cm IVSs 1.6 cm LVIDd 5.0 cm LVIDs 3.5 cm LVPWd 1.0 cm LVPWs 1.8 cm IVS/LVPW 1.1 FS 31.3 % EDV(Teich) 120.8 ml ESV(Teich) 49.8 ml EF(Teich) 58.8 % EDV(cubed) 128.5 ml ESV(cubed) 41.8 ml EF(cubed) 67.5 % % IVS thick 36.2 % % LVPW thick 77.4 % LV mass(C)d 208.3 grams LV mass(C)dI 100.8 grams/m\S\2 LV mass(C)s 235.8 grams LV mass(C)sI 114.1 grams/m\S\2 CO(Teich) 3.8 l/min CI(Teich) 1.9 l/min/m\S\2 SV(Teich) 71.0 ml SI(Teich) 34.4 ml/m\S\2 CO(cubed) 4.7 l/min CI(cubed) 2.3 l/min/m\S\2 SV(cubed) 86.8 ml SI(cubed) 42.0 ml/m\S\2 ACS 1.6 cm asc Aorta Diam 4.5 cm LVOT diam 2.0 cm LVOT area 3.0 cm\S\2 LVAd ap4 34.0 cm\S\2 LVLd ap4 8.1 cm EDV(MOD-sp4) 117.0 ml LVAs ap4 18.8 cm\S\2 LVLs ap4 6.4 cm ESV(MOD-sp4) 45.4 ml EF(MOD-sp4) 61.2 % LVAd ap2 24.1 cm\S\2 LVLd ap2 7.2 cm EDV(MOD-sp2) 66.4 ml LVAs ap2 14.1 cm\S\2 LVLs ap2 6.4 cm ESV(MOD-sp2) 26.0 ml EF(MOD-sp2) 60.8 % CO(MOD-sp4) 3.9 l/min CI(MOD-sp4) 1.9 l/min/m\S\2 SV(MOD-sp4) 71.6 ml SI(MOD-sp4) 34.7 ml/m\S\2 CO(MOD-sp2) 2.2 l/min CI(MOD-sp2) 1.1 l/min/m\S\2 SV(MOD-sp2) 40.4 ml SI(MOD-sp2) 19.6 ml/m\S\2 Doppler Measurements and Calculations MV E max sonal 97.5 cm/sec MV A max sonal 95.1 cm/sec MV E/A 1.0 MV dec time 0.25 sec Ao V2 max 122.2 cm/sec Ao max PG 6.0 mmHg Ao max PG (full) 1.3 mmHg CHARLES(V,A) 2.7 cm\S\2 CHARLES(V,D) 2.7 cm\S\2 LV V1 max PG 4.6 mmHg LV V1 max 107.7 cm/sec MR max sonal 350.2 cm/sec MR max PG 49.1 mmHg PA V2 max 75.2 cm/sec PA max PG 2.3 mmHg
[2017-03-22] MEDS ORDERED: IV FLUIDS COMPLETED PRN (12:15)
[2017-03-22 12:28] LABS: ESTIMATED AVERAGE GLUCOSE 240 mg/dl; HA1C FLAG Normal (Normal)
[2017-03-22] MEDS ORDERED: LORAZEPAM INJ 1 MG in SYRINGE 0.5 ML IV STA (12:38)
--- NOTE | 2017-03-22 13:38 | DIAGNOSTIC IMAGING REPORT ---
MRI OF THE BRAIN WITHOUT CONTRAST CLINICAL HISTORY: Transient ischemic attack. RIGHT ARM APRAXIA. COMPARISON STUDY: Noncontrast head CT dated 03/22/2017 FINDINGS: Sagittal T1, axial diffusion, proton density and T2 weighted axial, coronal FLAIR, and axial T1-weighted images were acquired. No intra or extra-axial mass lesions are visualized There are very small foci of restricted water diffusion within the left frontal lobe, parietal lobe, and temporal lobes. The findings are consistent with small foci of acute/subacute infarction. There is no evidence of ventricular dilatation. Proton density T2-weighted and FLAIR images reveal scattered foci of increased T2 signal within the white matter, likely on a small vessel basis. There is an old left cerebellar infarct. There are atrophic changes with prominent subarachnoid space. There are no abnormal flow voids. IMPRESSION: Scattered very small foci of restricted water diffusion within the distribution of left middle cerebral artery, consistent with foci of acute/subacute infarction Electronically signed by: Jun Hsu M.D. 03/22/2017 1:37 PM Dictated Date/Time: 03/22/2017 1:33 PM
--- NOTE | 2017-03-22 13:39 | DIAGNOSTIC IMAGING REPORT ---
MR ANGIOGRAM OF THE BRAIN CLINICAL HISTORY: Stroke. COMPARISON STUDY: MRI of the brain performed concurrently on 03/22/2017. TECHNIQUE: 3-D [id number] MR angiography of the intracranial circulation is performed. 3-D tumble views are created and assessed. IV contrast was not administered for this examination. The examination is degraded by motion artifact. FINDINGS: The internal carotid arteries are widely patent bilaterally, as are the anterior and middle cerebral arteries. The vertebrobasilar system and posterior cerebral arteries are widely patent. The right vertebral artery is dominant. There is no aneurysm, high-grade stenosis, or focal vessel cutoff seen throughout the intracranial circulation. A chronic infarct is seen in the left cerebellar hemisphere. IMPRESSION: Unremarkable MR angiogram of the brain. Electronically signed by: Petey Sosa M.D. 03/22/2017 1:38 PM Dictated Date/Time: 03/22/2017 1:36 PM
[2017-03-22] MEDS: MAGNESIUM SULFATE 1GM / D5W 1 GM in PREMIXED IN D5W 100 ML IV SCH ×3 (15:14→17:20)
[2017-03-22 15:47] VITALS: BP 147/71; PULSE 62; TEMP 36.6; O2SAT 95
[2017-03-22 20:19] VITALS: BP 128/66; PULSE 61; TEMP 36.5; O2SAT 91
[2017-03-22] MEDS: INSULIN DETEMIR SC SCH (20:35)
[2017-03-22] MEDS ORDERED: ENOXAPARIN 40 MG/0.4 ML SYR SC SCH (21:00)
[2017-03-23] VITALS (7 sets, daily range): BP systolic 113–150; BP diastolic 52–84; PULSE 52–55; TEMP 36.6–36.7; O2SAT 94–96; Ht 175.3 cm; Wt 89.0 kg
[2017-03-23] MEDS: ACETAMINOPHEN 325 MG TAB PO PRN ×2 (00:09→09:44)
[2017-03-23] MEDS: INSULIN ASPART 100 UNITS/ML 3 ML PEN SC SCH ×3 (01:06→13:35)
[2017-03-23] MEDS ORDERED: LIDOCAINE HCL 2% 2 ML VIAL (20MG/ML) ONE (07:34)
[2017-03-23 07:58] LABS: BASO % 0.2 %; BASO ABS # 0.01 K/uL (0-0.2); COMPLETE YES; EOS % 2.9 %; HEMATOCRIT 38.5 % (42-52); IG% 0.2 %; LYMPH % 43.3 %; LYMPH ABS # 2.58 K/uL (1.2-3.4); MEAN CELL VOLUME 91.7 fL (80-100); MEAN CORPUSCULAR HEMOGLOBIN 30.5 pg (25-34); MEAN CORPUSCULAR HGB CONC 33.2 g/dl (32-36); MEAN PLATELET VOLUME 10.4 fL (7.4-10.4); MONO % 8.4 %; PLATELET COUNT 148 K/uL (130-400); WHITE BLOOD COUNT 5.96 K/uL (4.8-10.8)
[2017-03-23] MEDS: INSULIN DETEMIR SC SCH (08:34)
[2017-03-23 08:41] LABS: BUN/CREATININE RATIO 13.6 (10-20); CALCIUM 9.2 mg/dl (8.5-10.1); POTASSIUM 4.1 mmol/L (3.5-5.1)
[2017-03-23 08:44] LABS: CHOLESTEROL/HDL RATIO 2.9
[2017-03-23] MEDS ORDERED: ASPIRIN 81 MG ECTAB PO SCH (09:00)
[2017-03-23] MEDS ORDERED: ASPIRIN 325 MG ECTAB PO SCH (09:00)
[2017-03-23] MEDS ORDERED: CYANOCOBALAMIN 500 MCG TAB (VIT B-12) PO SCH (09:00)
[2017-03-23] MEDS ORDERED: MULTIVITAMIN TAB PO SCH (09:00)
[2017-03-23] MEDS ORDERED: ATORVASTATIN 40 MG TAB PO SCH (09:00)
[2017-03-23] MEDS ORDERED: OPTIRAY 320 IV PRN (09:00)
[2017-03-23] MEDS ORDERED: CHOLECALCIFEROL 1000 INTER.UNIT TAB PO SCH (09:00)
--- NOTE | 2017-03-23 09:18 | Neurology Consultation ---
Neurology Consultation Date of Consultation: Mar 23, 2017. Attending Physician: Eliseo Fernandez M.D. Primary Care Physician: Brando Bourgeois M.D. Reason for Consultation: Consultation for stroke History of Present Illness Source: patient, hospital records This is a 71-year-old right-handed male who presents with sudden onset of right hand weakness and facial droop yesterday morning. He reports that he was sitting in bed watching TV at about 5:30 AM when he went to reach for something on the table and found that he had trouble using his hand. He denied any weakness or neurological symptoms when he woke up that morning. Also noted to have a very mild right facial droop. He denied any numbness. He denied any weakness in his. He denied any new trouble with his walking or gait. He reports that for the last 6 years he's had trouble walking a straight line and his balance his been not as good as it used to be. He related it to his knee surgery at around that time. He denied any changes with his vision or vision loss. Denied any changes with his speech. Denied any trouble swallowing. Denied any chest pain or shortness of breath. Denies any heart palpitations. Reports that he has been taking baby aspirin for a number of years and has been compliant. Denies any history of strokes or TIAs in the past. He does chew tobacco on a regular basis. Patient reports that at around 9 or 9:30am yesterday morning he felt like his symptoms resolved. He reports that he is at his neurological baseline this morning. MRI of the brain report and images were reviewed by myself. Noted small scattered acute to subacute ischemic strokes in the left MCA territory. In addition noted small old left cerebellar stroke. Minimal T2 hyperintensities in the subcortical white matter indicative of small vessel ischemic disease. MRA of the brain was unremarkable Ultrasound of the carotids were unremarkable Echocardiogram noted mild dilated aorta and mild dilated right ventricle Hemoglobin A1c 10.0 Total cholesterol 114, LDL 39, HDL 39, triglycerides 178 Past Medical/Surgical History Past medical history: Diabetes type 2 insulin-dependent Hypertension Dyslipidemia Chews tobacco Sciatica Right knee surgery Multiple surgeries on right hand for trigger fingers Family History Mother with dementia Denies any family history of strokes or heart attacks Social History Is independent in his activities of daily living. Currently employed. Chews tobacco. No illegal drug use or stimulant supplement use. Smoking Status: Former smoker Smokeless Tobacco Use: Yes Alcohol Use: socially Drug Use: none Marital Status: Housing Status: lives with family Occupation Status: retired Allergies Coded Allergies: No Known Allergies (Verified , 03/22/17) Current Inpatient Medications Current Inpatient Medications Medications (Trade) Dose Ordered Sig/Mat Route Start Time Stop Time Status Last Admin Dose Admin Miscellaneous Information (Pharmacist Discharge Med Rec Consult) 1 ea UD PRN N/A 03/22/17 09:45 04/21/17 09:44 Enoxaparin Sodium (Lovenox Inj) 40 mg HS SC 03/22/17 21:00 04/21/17 20:59 03/22/17 20:30 40 MG Acetaminophen (Tylenol Tab) 650 mg Q4H PRN PO 03/22/17 09:45 04/21/17 09:44 03/23/17 00:09 650 MG Atorvastatin Calcium (Lipitor Tab) 40 mg DAILY PO 03/23/17 09:00 04/22/17 08:59 03/23/17 08:30 40 MG Cyanocobalamin (Vitamin B-12 Tab) 1,000 mcg DAILY PO 03/23/17 09:00 04/22/17 08:59 03/23/17 08:31 1,000 MCG Multivitamins (Multivitamin Tab) 1 tab DAILY PO 03/23/17 09:00 04/22/17 08:59 03/23/17 08:30 1 TAB Cholecalciferol (Vitamin D Tab) 2,000 inter.unit QAM PO 03/23/17 09:00 04/22/17 08:59 03/23/17 08:31 2,000 INTER.UNIT Insulin Detemir (Levemir Insulin) 50 units BID SC 03/22/17 21:00 04/21/17 20:59 03/23/17 08:34 50 UNITS Insulin Aspart (novoLOG ASPART) SLIDING SCALE If C... ACHS SC 03/22/17 11:00 04/21/17 10:59 03/23/17 08:33 1 UNITS Hydralazine HCl (HydrALAZINE INJ) 10 mg Q4H PRN IV. 03/22/17 10:15 04/21/17 10:14 Aspirin (Ecotrin Tab) 325 mg QAM PO 03/23/17 09:00 04/22/17 08:59 03/23/17 08:30 325 MG Glucose (Glucose 40% Gel) 15-30 GRAMS 15 GRAMS... UD PRN PO 03/22/17 11:45 04/21/17 11:44 Glucose (Glucose Chew Tab) 4-8 Tablets 4 Tabl... UD PRN PO 03/22/17 11:45 04/21/17 11:44 Dextrose (Dextrose 50% 50ML Syringe) 25-50ML OF 50% DW IV FOR... UD PRN IV 03/22/17 11:45 04/21/17 11:44 Glucagon (Glucagon Inj) 1 mg UD PRN SQ 03/22/17 11:45 04/21/17 11:44 Miscellaneous (Iv Fluids Completed) 1 ea PRN PRN N/A 03/22/17 12:15 03/22/18 12:14 Review of Systems Complete review of systems otherwise negative except for the above noted in history of present illness Physical Exam Vital Signs (Past 24 Hrs): Date Time Temp Pulse Resp B/P (MAP) Pulse Ox O2 Delivery O2 Flow Rate FiO2 03/23/17 07:20 36.6 52 16 115/67 (83) 95 Room Air 03/23/17 04:00 36.6 53 20 114/67 (83) 95 Room Air 03/23/17 04:00 Room Air 03/23/17 00:04 36.6 53 20 113/52 (72) 94 Room Air 03/23/17 00:00 Room Air 03/22/17 20:19 36.5 61 18 128/66 (86) 91 Room Air 03/22/17 20:00 Room Air 03/22/17 16:00 Room Air 03/22/17 15:47 36.6 62 18 147/71 (96) 95 Room Air 03/22/17 11:30 36.7 57 18 174/83 (113) 94 Room Air 03/22/17 10:43 52 20 141/66 99 03/22/17 09:57 99 Room Air 03/22/17 09:46 62 20 152/74 99 Room Air 03/22/17 09:07 62 20 146/82 99 Room Air Gen.: Patient is alert and sitting on side of bed, in no acute distress. HEENT: Normocephalic /atraumatic, no scleral icterus Heart: Regular rate and rhythm Extremities: No gross deformities or rashes noted Neurological examination: Mental status: Patient is alert and oriented x3. Attention and concentration normal for the situation. Good fund of knowledge. Able to give his own history. Speech is fluent without any dysarthria or aphasia noted Cranial nerve: Funduscopic examination was unremarkable. No papilledema. Pupils equally round and reactive to light. Extraocular muscles intact without nystagmus. No facial asymmetry noted. Facial sensation intact. Tongue is midline. Good palatal elevation. Good shoulder shrug bilaterally. Hearing grossly intact to voice. Strength: 5/5 both proximal and distally in all extremities. There is no arm drift. Tone is normal. Sensation: Grossly intact to light touch in all extremities. Mildly positive Romberg testing Deep tendon reflexes: +1 in bilateral biceps, brachioradialis and patellar. Coordination: Patient had good finger to nose without dysmetria Station within the bed was normal. Gait was slightly wide-based but otherwise appeared stable with no noticeable ataxia. Laboratory Results Past 24 Hours: 03/23/17 07:43 Red Blood Count 4.20, Mean Corpuscular Volume 91.7, Mean Corpuscular Hemoglobin 30.5, Mean Corpuscular Hemoglobin Concent 33.2, Mean Platelet Volume 10.4, Neutrophils (%) (Auto) 45.0, Lymphocytes (%) (Auto) 43.3, Monocytes (%) (Auto) 8.4, Eosinophils (%) (Auto) 2.9, Basophils (%) (Auto) 0.2, Neutrophils # (Auto) 2.69, Lymphocytes # (Auto) 2.58, Monocytes # (Auto) 0.50, Eosinophils # (Auto) 0.17, Basophils # (Auto) 0.01 03/23/17 07:43 Test 03/22/17 23:14 03/23/17 07:32 03/23/17 07:43 Troponin I < 0.015 ng/ml (0-0.045) Bedside Glucose 147 mg/dl (70-99) White Blood Count 5.96 K/uL (4.8-10.8) Red Blood Count 4.20 M/uL (4.7-6.1) Hemoglobin 12.8 g/dL (14.0-18.0) Hematocrit 38.5 % (42-52) Mean Corpuscular Volume 91.7 fL (80-100) Mean Corpuscular Hemoglobin 30.5 pg (25-34) Mean Corpuscular Hemoglobin Concent 33.2 g/dl (32-36) Platelet Count 148 K/uL (130-400) Mean Platelet Volume 10.4 fL (7.4-10.4) Neutrophils (%) (Auto) 45.0 % Lymphocytes (%) (Auto) 43.3 % Monocytes (%) (Auto) 8.4 % Eosinophils (%) (Auto) 2.9 % Basophils (%) (Auto) 0.2 % Neutrophils # (Auto) 2.69 K/uL (1.4-6.5) Lymphocytes # (Auto) 2.58 K/uL (1.2-3.4) Monocytes # (Auto) 0.50 K/uL (0.11-0.59) Eosinophils # (Auto) 0.17 K/uL (0-0.5) Basophils # (Auto) 0.01 K/uL (0-0.2) RDW Standard Deviation 42.6 fL (36.4-46.3) RDW Coefficient of Variation 12.8 % (11.5-14.5) Immature Granulocyte % (Auto) 0.2 % Immature Granulocyte # (Auto) 0.01 K/uL (0.00-0.02) Anion Gap 4.0 mmol/L (3-11) Est Creatinine Clear Calc Drug Dose 74.8 ml/min Estimated GFR () 87.4 Estimated GFR (Non- 75.4 BUN/Creatinine Ratio 13.6 (10-20) Calcium Level 9.2 mg/dl (8.5-10.1) Triglycerides Level 178 mg/dl (0-150) Cholesterol Level 114 mg/dl (0-200) HDL Cholesterol 39 mg/dl LDL Cholesterol, Calculated 39 mg/dl VLDL Cholesterol, Calculated 36 mg/dl Cholesterol/HDL Ratio 2.9 Imaging As noted above in history of present illness Impression This is a 71-year-old right-handed male who presents with about 4 hours of right hand weakness and mild facial droop. Appears to be at neurological baseline this morning, but does have some baseline gait and balance dysfunction. Found to have scattered acute to subacute ischemic strokes in the left MCA territory. Etiology appears to be either large vessel embolic versus cardioembolic. Known stroke risk factors include diabetes type 2 insulin- dependent, hypertension, dyslipidemia, and tobacco abuse. In addition also has evidence of a chronic small left cerebellar stroke on MRI. Plan I have ordered a CTA of the neck to complete stroke workup to look for dissection, critical stenosis, or other etiologies for large vessel embolic stroke. Start Plavix for secondary stroke prevention (ordered). Can overlap with aspirin 81mg for the next 1-3 days, and then aspirin can be discontinued. I have also ordered physical therapy and occupational therapy evaluation to evaluate for any outpatient physical therapy needs. Patient does not appear to have any speech therapy needs at this time. Follow-up PT/OT evals for discharge planning. Blood pressure recommendations while in hospital 175/95-150/80 Avoid hypotension and dehydration Stroke risk factor modifications and recommendations: Blood pressure recommendations for the first month post hospital discharge 150/ 90-130/80, and after that blood pressure recommendations 130/80-110/70 Total cholesterol goal 100- 200 and LDL goal less than 70 (at goal) Hemoglobin A1c goal less than 7 Encourage cardiovascular exercise at least 3 times a week for 30 minutes. Recommended tobacco cessation. Patient desires to be discharged today and reports that he cannot stay until tomorrow morning. Discussed with patient that we'll try to complete his workup but I did not make any promises. Went over stroke signs and symptoms with the patient and discussed that if he has any acute sudden new stroke symptoms, he should return to the emergency department for further evaluation. Follow-up in neurology clinic in 1 month for post stroke hospital follow-up. If no clear etiology found for the patient's stroke, would recommend Holter monitor as an outpatient to rule out paroxysmal A. fib. If there is any questions or concerns, feel free to call/page me.
--- NOTE | 2017-03-23 11:05 | DIAGNOSTIC IMAGING REPORT ---
CT ANGIOGRAPHY OF THE NECK WITH CONTRAST CLINICAL HISTORY: Stroke. COMPARISON STUDY: Carotid ultrasound March 22, 2017. Technique: CT angiography of the carotid and vertebral arteries was obtained using Kleo 320 IV and 3D reconstruction on an independent workstation. NASCET criteria was utilized. A dose lowering technique was utilized adhering to the principles of ALARA. CT DOSE: 588.64 mGy.cm Findings: There is mild dilatation of visualized portions of the distal ascending aorta which measures approximately 4.2 cm in caliber. The caliber of the aortic arch is normal. There is mild atherosclerotic plaque of the aortic arch. The bilateral common carotid, internal carotid and vertebral arteries are patent. There is no significant stenosis within these vessels and there is no evidence for dissection. There is mild atherosclerotic plaque within the proximal bilateral internal carotid arteries. The right vertebral artery is dominant and patent. The left vertebral artery is also patent. An old left cerebellar infarct is noted within visual portions of the brain. Lung apices are clear. There is no cervical lymphadenopathy. IMPRESSION: 1. Unremarkable CTA of the neck for age. No significant stenosis within the bilateral common carotid, internal carotid or vertebral arteries. Mild atherosclerotic plaque. No dissection. 2. Mild dilatation of visualized portions of the distal ascending aorta, measuring approximately 4.2 cm. Electronically signed by: Reilly Orellana M.D. 03/23/2017 11:04 AM Dictated Date/Time: 03/23/2017 10:56 AM
[2017-03-23] MEDS ORDERED: CLOPIDOGREL BISULFATE 75 MG TAB PO SCH (12:00)
[2017-03-23] MEDS ORDERED: PLV75 PO (12:07)
--- NOTE | 2017-03-23 12:08 | Discharge Instructions ---
Discharge Instructions Date of Service Mar 23, 2017. Admission Reason for Admission: TIA Discharge Discharge Diagnosis / Problem: Stroke Discharge Goals Goal(s): Improve function, Improve disease control Activity Recommendations Activity Limitations: resume your previous activity . Instructions / Follow-Up Instructions / Follow-Up Risk Factors for Stroke: You can reduce your chances of stroke by working with your medical provider to adopt a healthy lifestyle. Some specific ways to lower your chance of stroke are: * Stop the use of any tobacco products * If you are diabetic, improve the control of your blood sugars * Avoid excessive amounts of alcohol * Control high blood pressure * Lose weight if you are overweight * Be sure to lead an active lifestyle * Eat a healthy diet low in salt, cholesterol and fat You should know about other risk factors for stroke that you are unable to control. These include: * Age 55 years or older * Male gender * Certain racial groups: , or / * Family History of Stroke, Mini stroke or Heart Attack * Sickle Cell Disease Follow Up: It is important for you to keep your follow up appointments with your medical provider. Hold metformin for 48 hours following CTA dye - restart on 03/26 Increase Levemir by 5 units to 55 units BID for the days you are not taking your metformin and take your blood sugar before meals and before bed. Reduce Levemir back to your normal dose of 50 units BID after you restart taking metformin Current Hospital Diet Patient's current hospital diet: AHA Diet (Heart Healthy) Discharge Diet Recommended Diet: AHA Diet (Heart Healthy) Procedures Procedures Performed: CT angiogrophy of the neck Brain MRI/MRA CT head Carotid ultrasound Echocardiogram Pending Studies Studies pending at discharge: no Laboratory Results Hemoglobin A1c Test 03/22/17 08:00 Range/Units Estimated Average Glucose 240 mg/dl Hemoglobin A1c 10.0 H 4.5-5.6 % Lipid Panel Test 03/23/17 07:43 Range/Units Triglycerides Level 178 H 0-150 mg/dl Cholesterol Level 114 0-200 mg/dl HDL Cholesterol 39 mg/dl Cholesterol/HDL Ratio 2.9 LDL Cholesterol, Calculated 39 mg/dl Medical Emergencies . Who to Call and When: Medical Emergencies: Call 911 immediately if you experience any of the following warning signs and symptoms of Stroke: * Sudden numbness or weakness of the face, arm or leg, especially on one side of the body * Sudden confusion, trouble speaking or understanding * Sudden trouble seeing in one or both eyes * Sudden trouble walking, dizziness, loss of balance or coordination * Sudden severe headache with no cause Do not delay calling 911 if you experience any warning signs or symptoms of a stroke. Delay in seeking medical attention may affect what treatments can be given to you. . Non-Emergent Contact Non-Emergency issues call your: Primary Care Provider Call Non-Emergent contact if: you have any medication questions . Past History Medical & Surgical History: (1) Diabetes (2) CVA (cerebral vascular accident) . "Provider Documentation" section prepared by Su Bourgeois. . Stroke Core Measures Reason no t-PA for Stroke: Treatment not indicated Reason no antithrom by day 2: Treatment not indicated Reason no antithrom at D/C: Treatment not indicated Reason no statin at D/C: Treatment provided - N/A Reason no anticoag w/a fib: Treatment not indicated VTE Core Measure Inpt VTE Proph given/why not?: Enoxaparin (Lovenox)SQ
--- NOTE | 2017-03-23 12:28 | Discharge Summary ---
Discharge Summary Date of Service Mar 23, 2017. (Su Bourgeois .NIC) Discharge Summary Admission Date: Mar 22, 2017 at 10:31 Discharge Date: Mar 23, 2017 Discharge Disposition: Home Principal Diagnosis: CVA Immunizations: Have You Had Influenza Vaccine: Yes Influenza Vaccine Date: Mar 31, 2006 History of Tetanus Vaccine?: Yes History of Pneumococcal: Yes Pneumococcal Date: Mar 31, 2006 History of Hepatitis B Vaccine: No Procedures: CTA Neck IMPRESSION: 1. Unremarkable CTA of the neck for age. No significant stenosis within the bilateral common carotid, internal carotid or vertebral arteries. Mild atherosclerotic plaque. No dissection. 2. Mild dilatation of visualized portions of the distal ascending aorta, measuring approximately 4.2 cm. Brain MRI IMPRESSION: Scattered very small foci of restricted water diffusion within the distribution of left middle cerebral artery, consistent with foci of acute/subacute infarction Head MRA IMPRESSION: Unremarkable MR angiogram of the brain. Carotid US IMPRESSION: No evidence of hemodynamically significant carotid stenosis. CXR IMPRESSION: No acute cardiopulmonary abnormality. Head CT Brain parenchyma: A small focus of left cerebellar encephalomalacia is consistent with a remote infarct. An age indeterminant lacunar infarct is also seen in the left basal ganglia. IMPRESSION: There is no hemorrhage, mass effect, or evidence of acute territorial ischemia by CT criteria. (Su Bourgeois .NIC) Medication Reconciliation New Medications: Clopidogrel Bisulfate (Clopidogrel) 75 Mg Tab 75 MG PO QAM for 30 Days, #30 TAB Continued Medications: Amlodipine (Norvasc) 5 Mg Tab 5 MG PO DAILY Atorvastatin (Lipitor) 40 Mg Tab 40 MG PO DAILY Cholecalciferol (Vitamin D-3) 2,000 Unit Tab 2000 UNITS PO DAILY Cyanocobalamin (Vitamin B-12) 1,000 Mcg Tab 1000 MCG PO DAILY Insulin Detemir (Levemir) 100 Units/Ml Inj 50 UNITS SC BID Losartan Potassium (Cozaar) 100 Mg Tab 100 MG PO DAILY Metformin Hcl (Glucophage) 500 Mg Tab 500 MG PO QAM Metformin Hcl (Glucophage) 1,000 Mg Tab 1000 MG PO QPM Multivitamin (Multivitamin) Tab 1 TAB PO DAILY Turmeric (Curcuma Longa) (Turmeric) 500 Mg Cap 500 MG PO DAILY Discontinued Medications: Aspirin (Aspirin Ec) 81 Mg Tab 81 MG PO DAILY Discharge Exam Review of Systems: Respiratory: No shortness of breath Cardiovascular: No chest pain, No palpitations Abdomen: No nausea, No vomiting Neurologic: No paralysis, No weakness, No numbness/tingling, No vertigo, No balance problems Physical Exam: General Appearance: WD/WN, no apparent distress Eyes: normal inspection Respiratory/Chest: chest non-tender, lungs clear, normal breath sounds, no respiratory distress, no accessory muscle use Cardiovascular: regular rate, rhythm, no edema, no gallop, no murmur, normal peripheral pulses Abdomen / GI: normal bowel sounds, non tender, soft, no organomegaly Extremities: normal inspection, normal capillary refill, no pedal edema, normal range of motion Neurologic/Psychiatric: counselor aid II-XII nml as tested, no motor/sensory deficits , alert, normal mood/affect, oriented x 3 Skin: normal color, warm/dry (Su Bourgeois CRNP) Hospital Course Mr. Lambert is a 71 year old man here for CVA. His symptoms which included right hand weakness and right facial droop lasted about two hours and have resolved at this point. CT of the head showed a remote left cerebellar infarct and left age indeterminate basal ganglia lacunar infarct. MRI revealed a left MCA acute/ subacute CVA CVA - admit to the telemetry unit - A1c, lipids, troponin, prp and cbc in the morning - MRI/MRA head, carotid doppler, echocardiogram, CTA neck - ASA changed to clopidogrel per neurology - AHA diet HTN - home htn meds held for now. - hydralazine prn elevated bp DM - BSG AC & HS - Levemir and ss Hypomagnesemia - Mag 1.5 - 3 gm IV to replace Osteoarthritis - Tylenol prn Hyperlipidemia - continue statin DVT prophylaxis - enoxaprin and SCDs Resuscitation status - full resuscitation Total Time Spent: Less than 30 minutes This includes examination of the patient, discharge planning, medication reconciliation, and communication with other providers. (Su Bourgeois CRNP) [employer] Physician Supervision Note: I interviewed and examined the patient. Discussed with Su Bourgeois NP and agree with findings and plan as documented in the note. Any exceptions or clarifications are listed here: None Patient presented with acute what looks like embolic left MCA stroke is no signs of embolic source for significant stenosis of his great vessels of his neck. The patient has almost complete resolution of his initial presenting symptoms of right-sided hand and leg weakness with facial droop he does have some kidney issues related to previous knee replacement Vitals are stable neurologically no residual symptoms are noted his heart is regular Patient was seen by neurology who recommended Plavix therapy continue his atorvastatin and will have an outpatient neurology follow-up Documented By: Eliseo Fernandez (Eliseo Fernandez M.D.) Discharge Instructions Please refer to the electronic Patient Visit Report (Discharge Instructions) for additional information. (Su Bourgeois ., NIC)
== END 2017-03-23 15:07 | disposition home or self-care (01) | DRG 66 ==
LOC: C.EDB 07:43 → ENRESERV 10:21 → C.MED 10:31 → EDBEDREQ 10:33 → C.MED 15:25
PROVIDERS: ADMIT Internal Medicine; ATTEND Internal Medicine
DX: I63.412 Cerebral infarction due to embolism of left middle cerebral artery (principal); E11.9 Type 2 diabetes mellitus without complications; I10 Essential (primary) hypertension; E78.5 Hyperlipidemia, unspecified; Z86.73 Personal history of transient ischemic attack (TIA), and cerebral infarction without residual deficits; Z79.82 Long term (current) use of aspirin; Z96.651 Presence of right artificial knee joint; E83.42 Hypomagnesemia; M19.90 Unspecified osteoarthritis, unspecified site; F17.220 Nicotine dependence, chewing tobacco, uncomplicated

== ENCOUNTER → 2017-05-24 | Outpatient (CLI) | payer BC, OTHER ==
[~2017-05-24] MED LIST changes: -ASPI81TA28 PO; +CHOL200027 PO; -CHOL20007 PO; -CINA0.42 PO; -CIPR-255 PO; -CIPR1TAB11 PO; +CYAN10005 PO; +GLC/500 PO; -GLIM1TAB2 PO; -INSUINJ12 SC; -LISI-794 PO; +LOSA1TAB38 PO; +LVMI SC; +METF-384 PO; +MULT-506 PO; -OXYC-57 PO; +PLV75 PO; -SITA50TA5 PO; +TURM1CAP4 PO
[2017-05-24 17:36] LABS: BASO % 0.4 %; BASO ABS # 0.02 K/uL (0-0.2); COMPLETE YES; EOS % 1.5 %; HEMATOCRIT 42.6 % (42-52); IG% 0.2 %; LYMPH % 34.8 %; LYMPH ABS # 1.82 K/uL (1.2-3.4); MEAN CELL VOLUME 92.4 fL (80-100); MEAN CORPUSCULAR HEMOGLOBIN 30.8 pg (25-34); MEAN CORPUSCULAR HGB CONC 33.3 g/dl (32-36); MONO % 7.3 %; NEUT % 55.8 %; PLATELET COUNT 160 K/uL (130-400); RED BLOOD COUNT 4.61 M/uL (4.7-6.1); WHITE BLOOD COUNT 5.23 K/uL (4.8-10.8)
[2017-05-24 18:34] LABS: ALT/SGPT 52 U/L (12-78); AST/SGOT 47 U/L (15-37); BLOOD UREA NITROGEN 17 mg/dl (7-18); BUN/CREATININE RATIO 16.1 (10-20); CALCIUM 9.9 mg/dl (8.5-10.1); CARBON DIOXIDE 25 mmol/L (21-32); CHLORIDE 109 mmol/L (98-107); CHOLESTEROL 127 mg/dl (0-200); CREATININE 1.03 mg/dl (0.60-1.40); GLUCOSE 202 mg/dl (70-99); POTASSIUM 4.2 mmol/L (3.5-5.1); SODIUM 139 mmol/L (136-145)
[2017-05-24 18:46] LABS: ALB/GLOB RATIO 1.2 (0.9-2); ALKALINE PHOSPHATASE 87 U/L (45-117); FERRITIN 36.6 ng/ml (8.0-388.0); HDL CHOLESTEROL 43 mg/dl; LDL CHOLESTEROL CALCULATED 56 mg/dl; TRIGLYCERIDES 140 mg/dl (0-150); VERY LOW DENSITY LIPOPROT CALC 28 mg/dl
[2017-05-25 07:10] LABS: ESTIMATED AVERAGE GLUCOSE 226 mg/dl; HA1C FLAG Normal (Normal)
== END | disposition home or self-care (01) ==
LOC: C.LABPBG 12:40
PROVIDERS: ATTEND Internal Medicine Geriatric Medicine
DX: I10 Essential (primary) hypertension (principal); D64.9 Anemia, unspecified; E11.9 Type 2 diabetes mellitus without complications; E83.52 Hypercalcemia

== ENCOUNTER → 2017-06-01 | Outpatient (CLI) | payer BC, OTHER ==
--- NOTE | 2017-06-01 11:55 | DIAGNOSTIC IMAGING REPORT ---
[facility] CLINICAL HISTORY: N20.1 Ureteral [id number] COMPARISON STUDY: 04/02/2016 FINDINGS: There is a 2 cm calcification at the L3 level to the right of midline. This could represent a faintly opaque proximal right ureteral calculus. Also evident is a 21 mm calcification projected over the medial aspect of the upper pole the right kidney. 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 There is no pathologic bowel dilatation. IMPRESSION: 2 cm calcification at the L3 level to the right of midline. This could represent a faintly opaque proximal right ureteral calculus. If clinically indicated, CT scanning could be obtained for confirmation. Electronically signed by: Jun Hsu M.D. 06/01/2017 11:54 AM Dictated Date/Time: 06/01/2017 11:52 AM
== END | disposition home or self-care (01) ==
LOC: C.RAD 10:52
PROVIDERS: ATTEND Urology
DX: N20.1 Calculus of ureter (principal)

== ENCOUNTER → 2017-06-08 | Outpatient (CLI) | payer BC, OTHER ==
--- NOTE | 2017-06-08 10:37 | DIAGNOSTIC IMAGING REPORT ---
CT SCAN OF THE ABDOMEN AND PELVIS WITHOUT IV CONTRAST CLINICAL HISTORY: Nephrolithiasis. COMPARISON STUDY: K[facility] dated 06/01/2017. Abdominal CT dated 04/25/2015. TECHNIQUE: CT scan of the abdomen and pelvis is performed from the lung bases to the proximal femora. Images are reviewed in the axial, sagittal, and coronal planes. IV contrast was not administered for this examination. A dose lowering technique was utilized adhering to the principles of ALARA. CT DOSE: 774.58 mGy.cm FINDINGS: Lung bases: The heart is top normal in size and without pericardial effusion. There are coronary artery calcifications. Subpleural reticulation is present at both lung bases. There are tiny foci of tree-in-bud nodularity in the lower lobes. Scattered punctate calcified granulomas are observed. A 4 mm nodule at the right lung base as seen on image #35. This is unchanged from 2015 and of doubtful significance. There is a tiny hiatal hernia. Liver: The unenhanced liver is normal in size, contour, and attenuation. There is no intrahepatic biliary ductal dilatation. Gallbladder: Unremarkable. Spleen: Normal in size and attenuation. Pancreas: The unenhanced pancreas is grossly unremarkable. Adrenal glands: Unremarkable. Kidneys: The unenhanced kidneys demonstrate cortical atrophy and are without hydronephrosis. There are 2 nonobstructing right renal calculi which measure up to 5 mm. There are least 4 nonobstructing left renal calculi measuring up to 3 mm. A 2.0 cm cyst is noted in the interpolar right kidney. 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 Abdominal vasculature: The abdominal aorta is normal in course and caliber noting moderate atherosclerotic calcification. Bowel: There is mild colonic diverticulosis without CT evidence of acute diverticulitis. No bowel obstruction is seen. The appendix is well-visualized and normal. Peritoneum: There is no intraperitoneal free air or abdominal ascites. Foci of induration within the ventral abdominal wall are likely related to subcutaneous injections. Lymphadenopathy: None. Pelvic viscera: The prostate gland is mildly enlarged and heterogeneous, measuring 4.6 cm in transverse diameter. The bladder wall is thickened and trabeculated suggesting chronic outlet obstruction. Skeletal structures: The skeletal structures are osteopenic. There is mild to moderate lumbosacral spondylosis. A disc herniation is noted at L4-L5. Arthritic change is also seen in the hips and sacroiliac joints. No lytic or blastic lesions are seen. IMPRESSION: 1. There are small bilateral nonobstructing renal calculi as above. No ureteral stone is seen and there is no hydronephrosis. The calculus questioned at the level of the right L3 transverse process by K[facility] on 06/01/2017 was likely artifactual. 2. 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 3. Mild colonic diverticulosis without CT evidence of acute diverticulitis. 4. Additional findings as above. Electronically signed by: Petey Sosa M.D. 06/08/2017 10:36 AM Dictated Date/Time: 06/08/2017 10:21 AM
== END | disposition home or self-care (01) ==
LOC: C.CTS 10:07
PROVIDERS: ATTEND Urology
DX: N20.0 Calculus of kidney (principal); I72.2 Aneurysm of renal artery

== ENCOUNTER 2017-08-01 09:09 | Emergency (ER) | payer BC ==
[~2017-08-01] VITALS: Ht 175.3 cm; Wt 102.5 kg
[2017-08-01 09:15] VITALS: TEMP 36.9; O2SAT 94; Ht 175.3 cm; Wt 102.5 kg
[2017-08-01] MEDS ORDERED: HYDROmorphone INJ 1 MG/ML SYR IV STA (09:38)
--- NOTE | 2017-08-01 09:38 | EMERGENCY ROOM VISIT NOTE ---
History Report prepared by Angleibharinder: Nova Ivory Under the Supervision of: Dr. Mychal Bettencourt M.D. First contact with patient: 09:30 Chief Complaint: BACK PAIN Stated Complaint: BACK PAIN History of Present Illness The patient is a 72 year old male who presents to the Emergency Room with complaints of worsening back pain for the past 2 days. He was brought to the ED via ALS. He reports he underwent an L3 to L5 laminectomy 2 ago, on July 30 , at [facility]. He rates his current discomfort as a 10/ 10 in severity. He was placed on Tramadol for pain relief, but states it has provided minimal relief. The pain radiates down his bilateral legs. The patient was released home yesterday and states he cannot walk because of pain. He reports he was never ambulated while at [facility]. He denies any loss of bowel or bladder function or saddle anesthesia. He can still move his legs. He denies any fevers, chills, abdominal pain, nausea, vomiting or diarrhea. His family denies any bleeding or discharge from his surgical dressings. The patient does take Plavix, but has been off it since the surgery. 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 A total of 10 systems reviewed and were otherwise negative. Past Medical & Surgical Medical Problems: (1) CVA (cerebral vascular accident) (2) Diabetes (3) HTN (hypertension) (4) Hyperlipemia (5) Tobacco abuse Surgical Problems: (1) H/O: knee surgery Family History Patient reports no known family medical history. Social History Smoking Status: Unknown if Ever Smoked Drug Use: none Marital Status: Housing Status: lives with family Occupation Status: retired Current/Historical Medications Scheduled Amlodipine (Norvasc), 10 MG PO DAILY Atorvastatin (Lipitor), 40 MG PO DAILY Cholecalciferol (Vitamin D-3), 2,000 UNITS PO DAILY Cyanocobalamin (Vitamin B-12), 1,000 MCG PO DAILY Insulin Glargine (Toujeo Solostar), 70 UNITS SC HS Insulin Lispro 75/25 (Humalog Mix 75/25), 17 UNITS SC BID Losartan Potassium (Cozaar), 100 MG PO DAILY Metformin Hcl (Glucophage), 500 MG PO BID Multivitamin (Multivitamin), 1 TAB PO DAILY Allergies Coded Allergies: No Known Allergies (Verified , 08/01/17) Physical Exam Vital Signs Date Time Temp Pulse Resp B/P (MAP) Pulse Ox O2 Delivery O2 Flow Rate FiO2 08/01/17 16:00 87 20 160/85 93 Room Air 08/01/17 15:00 84 20 156/102 96 Room Air 4.0 08/01/17 13:42 91 16 133/76 96 Nasal Cannula 4.0 08/01/17 12:00 74 18 142/82 93 Nasal Cannula 2.0 08/01/17 09:31 75 08/01/17 09:15 Nasal Cannula 08/01/17 09:15 94 Nasal Cannula 2.0 08/01/17 09:15 36.9 79 20 158/86 92 Room Air Physical Exam GENERAL: Patient is uncomfortable appearing and in moderate distress. HEENT: No acute trauma, normocephalic atraumatic, mucous membranes moist, no nasal congestion, no scleral icterus. NECK: No stridor, no adenopathy, no meningismus, trachea is midline. LUNGS: No dyspnea. Clear to auscultation and equal bilaterally. No wheeze, no rhonchi. HEART: Regular rate and rhythm. No murmurs, rubs, gallops appreciated. ABDOMEN: Soft, nontender, bowel sounds positive, no masses appreciated, no peritonitis. BACK: Lumbar incision scar with sutures, no drainage, some mild surrounding bruising, no swelling, no erythema, mild tenderness to palpation of low back and buttocks. EXTREMITIES: Pain with ROM of legs but no decreased strength or sensation. No cyanosis, no edema. NEUROLOGIC: Alert and oriented, no acute motor or sensory deficits, no focal weakness, cranial nerves grossly intact. SKIN: No rash, no jaundice, no diaphoresis. Medical Decision & Procedures ER Provider Diagnostic Interpretation: Radiology results and stated below per my review and radiologist interpretation: MRI OF THE LUMBAR SPINE WITHOUT CONTRAST CLINICAL HISTORY: post surg 48 hrs, worsening bilateral leg pain/weakness COMPARISON STUDY: No previous studies for comparison. TECHNIQUE: Utilizing a 1.5 Teena magnet and dedicated coil, multiplanar, multiecho imaging of the lumbar spine was performed without IV contrast. FINDINGS: For purposes of numbering on this exam, the L5-S1 disc space is assigned to axial image 29 of 31. Alignment of the lumbar spine is anatomic. Vertebral body heights are maintained. There is no suspicious marrow replacement. The conus terminates at the lower L1 level. This exam is moderately compromised by motion artifact. Note is made of an L3-L5 laminectomy. Note is made of a laminectomy bed fluid collection that measures 3.5 x 2.3 x 1.9 cm. This extends into the canal and has significant mass effect upon the thecal sac. No additional fluid collections are identified on this exam. The bladder is partially imaged but appears to be significantly distended. L1-2: The central canal and neural foramina patent. L2-3: The central canal and neural foramen are patent. L3-4: There is mild disc bulge. There is mild narrowing of the central canal. There is mild during of both neural foramen. L4-5: The patient is status post laminectomy. Laminectomy bed fluid collection is noted with mass effect upon the posterior aspect of the thecal sac. There is a disc bulge with superimposed central disc protrusion. There is severe narrowing of the central canal at this level due to these findings. There is moderate narrowing of both lateral recesses and mild narrowing of both neural foramen. L5-S1: Central canal is patent. There is mild bilateral neural foraminal stenosis. IMPRESSION: 1. Status post recent L3-L5 laminectomy. 3.5 x 2.3 x 1.9 cm laminectomy bed fluid collection which extends into the canal and has significant mass effect upon the thecal sac. This collection, in conjunction with a disc bulge and central disc protrusion at L4-L5 result in significant mass effect upon the thecal sac. The laminectomy bed fluid collection is nonspecific in the early postoperative setting and differential considerations include seroma, pseudomeningocele and hematoma (although less likely given the signal characteristics). 2. Significant distention of the urinary bladder. 3. Study compromised by motion artifact. Electronically signed by: Reilly Orellana M.D. 08/01/2017 2:07 PM Laboratory Results 08/01/17 09:19 Red Blood Count 3.54, Mean Corpuscular Volume 93.2, Mean Corpuscular Hemoglobin 29.7, Mean Corpuscular Hemoglobin Concent 31.8, Mean Platelet Volume 10.4, Neutrophils (%) (Auto) 70.1, Lymphocytes (%) (Auto) 16.9, Monocytes (%) (Auto) 12.2, Eosinophils (%) (Auto) 0.4, Basophils (%) (Auto) 0.2, Neutrophils # (Auto ) 5.73, Lymphocytes # (Auto) 1.38, Monocytes # (Auto) 1.00, Eosinophils # (Auto ) 0.03, Basophils # (Auto) 0.02 08/01/17 09:19 Test 08/01/17 09:19 White Blood Count 8.18 K/uL (4.8-10.8) Red Blood Count 3.54 M/uL (4.7-6.1) Hemoglobin 10.5 g/dL (14.0-18.0) Hematocrit 33.0 % (42-52) Mean Corpuscular Volume 93.2 fL (80-100) Mean Corpuscular Hemoglobin 29.7 pg (25-34) Mean Corpuscular Hemoglobin Concent 31.8 g/dl (32-36) Platelet Count 131 K/uL (130-400) Mean Platelet Volume 10.4 fL (7.4-10.4) Neutrophils (%) (Auto) 70.1 % Lymphocytes (%) (Auto) 16.9 % Monocytes (%) (Auto) 12.2 % Eosinophils (%) (Auto) 0.4 % Basophils (%) (Auto) 0.2 % Neutrophils # (Auto) 5.73 K/uL (1.4-6.5) Lymphocytes # (Auto) 1.38 K/uL (1.2-3.4) Monocytes # (Auto) 1.00 K/uL (0.11-0.59) Eosinophils # (Auto) 0.03 K/uL (0-0.5) Basophils # (Auto) 0.02 K/uL (0-0.2) RDW Standard Deviation 45.2 fL (36.4-46.3) RDW Coefficient of Variation 13.3 % (11.5-14.5) Immature Granulocyte % (Auto) 0.2 % Immature Granulocyte # (Auto) 0.02 K/uL (0.00-0.02) Anion Gap 10.0 mmol/L (3-11) Est Creatinine Clear Calc Drug Dose 82.1 ml/min Estimated GFR () 91.2 Estimated GFR (Non- 78.7 BUN/Creatinine Ratio 15.3 (10-20) Calcium Level 9.3 mg/dl (8.5-10.1) Laboratory results as reviewed by me. Medications Administered Medications (Trade) Dose Ordered Sig/Mat Route Start Time Stop Time Status Last Admin Dose Admin Hydromorphone HCl (Dilaudid Inj) 1 mg NOW STAT IV 08/01/17 09:38 08/01/17 09:39 DC 08/01/17 10:00 1 MG Methocarbamol (Robaxin Tab) 500 mg NOW STAT PO 08/01/17 09:45 08/01/17 09:47 DC 08/01/17 10:30 500 MG Sodium Chloride 500 ml @ 999 mls/hr Q31M STAT IV 08/01/17 10:36 08/01/17 11:06 DC 08/01/17 11:00 999 MLS/HR Lorazepam (Ativan Inj) 1 mg Q1H PRN IV 08/01/17 12:00 08/01/17 14:28 DC 08/01/17 12:25 1 MG Sodium Chloride 1,000 ml @ 75 mls/hr [id number] STAT IV 08/01/17 14:27 08/02/17 03:46 08/01/17 14:49 75 MLS/HR Morphine Sulfate (MoRPHine SULFATE INJ) 4 mg NOW STAT IV 08/01/17 15:02 08/01/17 15:03 DC 08/01/17 15:27 4 MG ED Course 0931: The patient was evaluated in room A10. A complete history and physical exam was performed. 0938: Dilaudid 1 mg IV. 0943: I discussed the patients case with Dr. Parvin Evangelista, [facility]. She recommends the patient get Robaxin. 0945: Robaxin 500 mg PO. 0950: I reevaluated the patient. I discussed my conversation with Dr. Evangelista and they verbalized complete understanding and agreement. 1036: NSS 500 ml @ 999 mls/hr IV. 1040: I reevaluated the patient. He is feeling a little better. He is mildly hypoxic on room air. He still has significant pain with ROM of legs. 1140: Nursing attempted to ambulate the patient. He states he has too much pain and it hurts too much to try to walk. 1147: I discussed the patients case with Dr. Evangelista again. She recommends an MRI without contrast to evaluate for a hematoma. 1152: I discussed my conversation with Dr. Evangelista with the patient. He is still sleepy and states he does not do well with MRIs due to the enclosed space, but will try it. 1200: Ativan 1 mg IV. 1417: I discussed the patients case with Dr. Evangelista again. She requests the patient be transferred to [facility] for surgical evaluation. She is aware it could be several hours to get a bed and another several hours to get an ambulance, and it could be late evening until the patient arrives. 1425: I reevaluated the patient. He is sleepy but notes minimal pain. I advised he stay NPO and discussed my conversation with Dr. Evangelista and our plan to transfer him to [facility] and he verbalized complete understanding and agreement. Medical Decision Etiologies such as musculoskeletal, disc herniation, fracture, post-surgical pain, hemorrhage, aortic disease, metastatic disease, cord compression, discitis , infection, renal colic, gastrointestinal, acute exacerbation of chronic back pain, sciatica, cauda equina, as well as others were entertained. 72 yr old male arrives with low back pain 48 hours post L3-L5 laminectomy. Unable to stand/get up due to pain. After pain control with dilaudid as well as Robaxin (per [facility]) patient quite comfortable and on on trying to ambulate his legs are found to be much weaker than expected. He has no urinary loss of control, but given leg weakness and recent surgery felt that imaging required. Patient required Ativan prior to MRI given severe claustrophobia. MRI reveals significant thecal sac compression from fluid collection. Discussed this with Dr Evangelista [facility] who feels transfer to their facility reasonable. Notes pain control while waiting and hold off on steroids. Aware could be many hours prior to arrival given distant, no current bed, need to get ambulance, etc. Pain is controllable with Morphine IV throughout stay. Will send with PRN Morphine, Ativan, Zofran orders on ALS. Medication Reconcilliation Current Medication List: was personally reviewed by me Blood Pressure Screening Patient's blood pressure: Elevated blood pressure Blood pressure disposition: Elevated BP felt to be situational Consults Time Called: 936 Consulting Physician: Dr. Parvin Evangelista, [facility] Returned Call: [phone] I discussed the patients case with Dr. Parvin Evangelista, [facility]. She recommends the patient get Robaxin. Impression Primary Impression: Nerve compression Additional Impression: Lumbar spine root compression Scribe Attestation The scribe's documentation has been prepared under my direction and personally reviewed by me in its entirety. I confirm that the note above accurately reflects all work, treatment, procedures, and medical decision making performed by me. Departure Information Dispostion Transfer Acute Care Facility (The patient has been accepted as a transfer to [facility]) Referrals Brando Bourgeois M.D. (PCP) Patient Instructions My [facility] Problem Qualifiers
[2017-08-01] MEDS ORDERED: METHOCARBAMOL 500 MG TAB PO STA (09:45)
[2017-08-01 09:47] LABS: BASO % 0.2 %; BASO ABS # 0.02 K/uL (0-0.2); EOS % 0.4 %; EOS ABS # 0.03 K/uL (0-0.5); HEMOGLOBIN 10.5 g/dL (14.0-18.0); IG# 0.02 K/uL (0.00-0.02); LYMPH % 16.9 %; LYMPH ABS # 1.38 K/uL (1.2-3.4); MEAN CELL VOLUME 93.2 fL (80-100); MEAN CORPUSCULAR HEMOGLOBIN 29.7 pg (25-34); MEAN CORPUSCULAR HGB CONC 31.8 g/dl (32-36); MEAN PLATELET VOLUME 10.4 fL (7.4-10.4); MONO % 12.2 %; NEUT % 70.1 %; NEUT ABS # 5.73 K/uL (1.4-6.5); PLATELET COUNT 131 K/uL (130-400); RED CELL DISTRIBUTION WIDTH CV 13.3 % (11.5-14.5); RED CELL DISTRIBUTION WIDTH SD 45.2 fL (36.4-46.3); WHITE BLOOD COUNT 8.18 K/uL (4.8-10.8)
[2017-08-01 10:11] LABS: CALCIUM 9.3 mg/dl (8.5-10.1); CREATININE 0.96 mg/dl (0.60-1.40); POTASSIUM 4.2 mmol/L (3.5-5.1)
[2017-08-01] MEDS ORDERED: AMLO-114 PO (10:29)
[2017-08-01] MEDS ORDERED: INSU1.2I SC (10:29)
[2017-08-01] MEDS ORDERED: HMLI7525 SC (10:29)
[2017-08-01] MEDS ORDERED: SODIUM CHLORIDE 0.9% 500ML 500 ML IV STA (10:36)
[2017-08-01] MEDS ORDERED: LORAZEPAM 2 MG/ML 1 ML VIAL IV PRN (12:00)
--- NOTE | 2017-08-01 14:08 | DIAGNOSTIC IMAGING REPORT ---
MRI OF THE LUMBAR SPINE WITHOUT CONTRAST CLINICAL HISTORY: post surg 48 hrs, worsening bilateral leg pain/weakness COMPARISON STUDY: No previous studies for comparison. TECHNIQUE: Utilizing a 1.5 Teena magnet and dedicated coil, multiplanar, multiecho imaging of the lumbar spine was performed without IV contrast. FINDINGS: For purposes of numbering on this exam, the L5-S1 disc space is assigned to axial image 29 of 31. Alignment of the lumbar spine is anatomic. Vertebral body heights are maintained. There is no suspicious marrow replacement. The conus terminates at the lower L1 level. This exam is moderately compromised by motion artifact. Note is made of an L3-L5 laminectomy. Note is made of a laminectomy bed fluid collection that measures 3.5 x 2.3 x 1.9 cm. This extends into the canal and has significant mass effect upon the thecal sac. No additional fluid collections are identified on this exam. The bladder is partially imaged but appears to be significantly distended. L1-2: The central canal and neural foramina patent. L2-3: The central canal and neural foramen are patent. L3-4: There is mild disc bulge. There is mild narrowing of the central canal. There is mild during of both neural foramen. L4-5: The patient is status post laminectomy. Laminectomy bed fluid collection is noted with mass effect upon the posterior aspect of the thecal sac. There is a disc bulge with superimposed central disc protrusion. There is severe narrowing of the central canal at this level due to these findings. There is moderate narrowing of both lateral recesses and mild narrowing of both neural foramen. L5-S1: Central canal is patent. There is mild bilateral neural foraminal stenosis. IMPRESSION: 1. Status post recent L3-L5 laminectomy. 3.5 x 2.3 x 1.9 cm laminectomy bed fluid collection which extends into the canal and has significant mass effect upon the thecal sac. This collection, in conjunction with a disc bulge and central disc protrusion at L4-L5 result in significant mass effect upon the thecal sac. The laminectomy bed fluid collection is nonspecific in the early postoperative setting and differential considerations include seroma, pseudomeningocele and hematoma (although less likely given the signal characteristics). 2. Significant distention of the urinary bladder. 3. Study compromised by motion artifact. Electronically signed by: Reilly Orellana M.D. 08/01/2017 2:07 PM Dictated Date/Time: 08/01/2017 1:55 PM
[2017-08-01] MEDS ORDERED: SODIUM CHLORIDE 0.9% 1000ML 1,000 ML IV STA (14:27)
[2017-08-01] MEDS ORDERED: MoRPHine SULFATE 4 MG/ML 1 ML CARP\\VIAL IV STA (15:02)
[2017-08-01] MEDS: MoRPHine SULFATE 4 MG/ML 1 ML CARP\\VIAL IV PRN ×2 (18:15→19:26)
[2017-08-01 19:30] VITALS: BP 139/71; O2SAT 97
== END 2017-08-01 19:40 | disposition short-term general hospital (02) ==
LOC: EDBD 09:09 → C.EDA 09:10
DX: G54.9 Nerve root and plexus disorder, unspecified (principal); Z98.890 Other specified postprocedural states; F40.240 Claustrophobia; E11.9 Type 2 diabetes mellitus without complications; I10 Essential (primary) hypertension; E78.5 Hyperlipidemia, unspecified; Z86.73 Personal history of transient ischemic attack (TIA), and cerebral infarction without residual deficits; Z79.02 Long term (current) use of antithrombotics/antiplatelets; Z79.4 Long term (current) use of insulin

== ENCOUNTER → 2017-08-19 | Outpatient (CLI) | payer BC ==
[~2017-08-19] MED LIST changes: -AMLO-110 PO; +AMLO-114 PO; +HMLI7525 SC; +INSU1.2I SC; -LVMI SC; -METF-384 PO; -PLV75 PO; -TURM1CAP4 PO
[2017-08-19 18:29] LABS: BLOOD UREA NITROGEN 16 mg/dl (7-18); CREATININE 1.21 mg/dl (0.60-1.40)
== END | disposition home or self-care (01) ==
LOC: C.LABPBG 13:38
PROVIDERS: ATTEND Ophthalmology
DX: I63.9 Cerebral infarction, unspecified (principal)

== ENCOUNTER → 2017-08-23 | Outpatient (CLI) | payer BC ==
[~2017-08-23] MED LIST changes: +GADAVIST IV PRN
--- NOTE | 2017-08-23 12:02 | DIAGNOSTIC IMAGING REPORT ---
MRI OF THE BRAIN WITHOUT AND WITH IV CONTRAST CLINICAL HISTORY: Left sided cerebrovascular accident. Stroke symptoms. Loss of peripheral vision of right eye. COMPARISON STUDY: Head CT and MRI of the brain March 22, 2017. TECHNIQUE: Utilizing a 1.5 Teena magnet and dedicated coil, multiplanar, multiecho imaging of the brain was performed pre and postcontrast administration. IV administration of 9.5 mL of Gadavist contrast was uneventful. FINDINGS: Note is made of a 4 x 3.1 x 4.4 cm focus of inherent T1 hyperintensity within the left occipital lobe which is new since MRI of March 22, 2017. This may have mild enhancement however, this demonstrates significant inherent T1 hyperintensity which suggest blood products. There is moderate associated vasogenic edema with mild mass effect including sulcal effacement. There is no evidence for herniation. This focus demonstrates mild increased signal intensity on the diffusion-weighted sequence which could be artifactual given suspected hemorrhage. An old left cerebellar infarct is noted. Ventricular system is stable. Basilar cisterns are patent. There are no extra-axial collections. Flow-voids for the major intracranial vessels are present. 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 IMPRESSION: 4. 4 x 4 x 3.1 cm focus of inherent T1 hyperintensity within the left occipital lobe with moderate associated vasogenic edema and mild mass effect with sulcal effacement. The signal characteristics suggests a hematoma. This may reflect hemorrhagic conversion of an infarct. A short-term follow-up head CT in one to 2 days is recommended to confirm hemorrhage and evaluate for interval increase. This should be followed to resolution to exclude the unlikely possibility of an underlying mass. Discussed with Dr. Willis at time of dictation. Electronically signed by: Reilly Orellana M.D. 08/23/2017 12:00 PM Dictated Date/Time: 08/23/2017 11:38 AM
== END | disposition home or self-care (01) ==
LOC: C.MRIBC 10:22
PROVIDERS: ATTEND Ophthalmology
DX: I63.9 Cerebral infarction, unspecified (principal)

== ENCOUNTER → 2017-08-24 | Outpatient (CLI) | payer BC ==
[~2017-08-24] MED LIST changes: -GADAVIST IV PRN
[2017-08-24 18:10] LABS: BLOOD UREA NITROGEN 15 mg/dl (7-18); CREATININE 1.07 mg/dl (0.60-1.40)
== END | disposition home or self-care (01) ==
LOC: C.LAB 16:49
PROVIDERS: ATTEND Psychiatry & Neurology Neurology
DX: E11.9 Type 2 diabetes mellitus without complications (principal); I61.9 Nontraumatic intracerebral hemorrhage, unspecified

== ENCOUNTER → 2017-08-25 | Outpatient (CLI) | payer BC ==
[~2017-08-25] MED LIST changes: +OPTIRAY 320 IV PRN
--- NOTE | 2017-08-25 09:06 | DIAGNOSTIC IMAGING REPORT ---
ANGIOGRAPHY HEAD COMBO CLINICAL HISTORY: 72 years-old Male with follow-up study to assess a hemorrhagic process of the left occipital lobe. COMPARISON STUDY: Brain MRI 08/23/2017, CT head 03/22/2017 TECHNIQUE: Unenhanced axial CT scan of the brain is performed. Subsequently, following the IV administration of 120 cc of Optiray 320, CT angiogram of the brain was performed from the skull base to the vertex. Images are reviewed in the axial, sagittal, and coronal planes. 3-D MIPS images are created and assessed. IV contrast was administered without complication. A dose lowering technique was utilized adhering to the principles of ALARA. CT DOSE: 1300.50 mGy.cm FINDINGS: CT BRAIN: Intraparenchymal hematoma involving the left occipital lobe is redemonstrated measuring up to 4.2 x 2.3 cm, previously measuring 4.4 x 2.7 cm on study dated 08/23/2017 when measured in a similar fashion. Moderate surrounding vasogenic edema with mild mass effect and sulcal effacement redemonstrated. There is no midline shift or herniation identified. Moderate atrophy with ill-defined areas of low-attenuation within the ventricular white matter suggesting chronic microvascular ischemic changes. No extra-axial collections identified. No hydrocephalus. Remote infarction of the left mid cerebellar hemisphere. Mastoid air cells and middle ear cavities are clear. No calvarial fracture. Paranasal sinuses are clear. CT ANGIOGRAM OF THE BRAIN: The imaged bilateral internal carotid arteries are patent. There is mild atherosclerosis of the bilateral cavernous and clinoid portions of the internal carotid arteries bilaterally without high-grade narrowing. The bilateral anterior and middle cerebral arteries are also patent. The vertebrobasilar system and posterior cerebral arteries are widely patent. There is no aneurysm, high-grade stenosis, or proximal branch occlusion identified. Dural sinuses appear patent. There is no vascular malformation identified within the left occipital lobe. Previous described small development of venous anomaly of the right parietal lobe is better seen on comparison MRI with contrast. No evidence of active extravasation of the left occipital lobe. IMPRESSION: 1. Intraparenchymal hematoma of the left occipital lobe appears stable to slightly decreased in size from comparison study dated 08/23/2017 again demonstrating moderate vasogenic edema with associated mild mass effect and sulcal effacement. No midline shift, intraventricular extension or hydrocephalus. Continued follow-up recommended. 2. Unremarkable CTA of the head without aneurysm, high-grade stenosis, proximal branch occlusion or dissection. No vascular malformation identified within the left occipital lobe. Previously described small developmental venous anomaly of the right parietal lobe is better seen on comparison MRI. 3. Mild atrophy with chronic microvascular ischemic changes and remote left cerebellar hemisphere infarction. The above report was generated using voice recognition software. It may contain grammatical, syntax or spelling errors. Electronically signed by: Raymundo Ortiz M.D. 08/25/2017 9:05 AM Dictated Date/Time: 08/25/2017 8:53 AM
--- NOTE | 2017-08-25 09:41 | DIAGNOSTIC IMAGING REPORT ---
NECK CTA HISTORY: Hemorrhagic stroke. Follow-up. TECHNIQUE: Multiaxial CT images of the neck were performed following the intravenous administration of contrast to evaluate the major cervical vessels. Maximum intensity projection images were also obtained. All measurements were calculated based on NASCET criteria. A dose lowering technique was utilized adhering to the principles of ALARA. COMPARISON STUDY: Neck CTA 03/23/2017. FINDINGS: There is dilatation of visualized portions of the ascending aorta which measures approximately 4.5 cm in caliber. The caliber of the aortic arch is normal. There is mild atherosclerotic plaque of the aortic arch. The bilateral common carotid, internal carotid and vertebral arteries are patent. There is no significant stenosis within these vessels and there is no evidence for dissection. There is mild atherosclerotic plaque within the proximal bilateral internal carotid arteries. The right vertebral artery is dominant and patent. The left vertebral artery is also patent. An old left cerebellar infarct is noted within visual portions of the brain. Lung apices are clear. There is no cervical lymphadenopathy. IMPRESSION: 1. Unremarkable CTA of the neck for age. No significant stenosis within the bilateral common carotid, internal carotid or vertebral arteries. Mild atherosclerotic plaque. No dissection. 2. Dilatation of visualized portions of the ascending aorta, measuring approximately 4.5 cm. Electronically signed by: Jim Albright M.D. 08/25/2017 9:39 AM Dictated Date/Time: 08/25/2017 9:32 AM
== END | disposition home or self-care (01) ==
LOC: C.CTS 08:24
PROVIDERS: ATTEND Psychiatry & Neurology Neurology
DX: I61.9 Nontraumatic intracerebral hemorrhage, unspecified (principal)

== ENCOUNTER → 2017-09-07 | Outpatient (CLI) | payer BC ==
[~2017-09-07] MED LIST changes: -OPTIRAY 320 IV PRN
--- NOTE | 2017-09-07 11:29 | DIAGNOSTIC IMAGING REPORT ---
CT SCAN OF THE BRAIN WITHOUT IV CONTRAST CLINICAL HISTORY: Follow-up hemorrhagic infarct. COMPARISON STUDY: CT of the brain dated 08/25/2017. TECHNIQUE: Unenhanced axial CT scan of the brain is performed from the vertex to the skull base. A dose lowering technique was utilized adhering to the principles of ALARA. CT DOSE: 788.63 mGycm FINDINGS: Brain parenchyma: There is edema and developing encephalomalacia identified in the left occipital lobe at the site of the previously characterized hemorrhage. Hyperdense blood products have almost completely resolved. There are age-related involutional changes noting mild subcortical and periventricular microangiopathic change. Left cerebellar encephalomalacia is consistent with a remote infarct. A chronic lacunar infarct is seen in the left internal capsule. No new hemorrhage is identified. There is no mass effect or evidence of acute territorial ischemia by CT criteria. Rob-white matter is preserved. No extra-axial fluid collection is seen. Ventricles, sulci, cisterns: Prominent secondary to involutional change. Intracranial vasculature: There is atherosclerotic calcification of the cavernous carotid and vertebral arteries. Calvarium: Unremarkable. Sinuses and mastoids: The visualized paranasal sinuses are clear. The mastoid air cells are well pneumatized. Orbits: The bony orbits are grossly intact. IMPRESSION: 1. There is an evolving left occipital infarct as above. Hyperdense blood products have almost completely resolved as compared to 08/25/2017. 2. No new foci of hemorrhage are identified. Electronically signed by: Petey Sosa M.D. 09/07/2017 11:28 AM Dictated Date/Time: 09/07/2017 11:25 AM
== END | disposition home or self-care (01) ==
LOC: C.CTS 11:04
PROVIDERS: ATTEND Psychiatry & Neurology Neurology
DX: I61.9 Nontraumatic intracerebral hemorrhage, unspecified (principal)

== ENCOUNTER → 2017-09-09 | Outpatient (CLI) | payer BC ==
[2017-09-10 06:15] LABS: HEMOGLOBIN A1C 8.1 % (4.5-5.6)
== END | disposition home or self-care (01) ==
LOC: C.LABPBG 11:13
PROVIDERS: ATTEND Nurse Practitioner Family
DX: E11.9 Type 2 diabetes mellitus without complications (principal)

== ENCOUNTER 2017-10-16 09:24 | Emergency (ER) | payer BC ==
[~2017-10-16] VITALS: Ht 175.3 cm; Wt 94.0 kg
[2017-10-16 09:38] VITALS: TEMP 36.6; Ht 175.3 cm; Wt 94.0 kg
[2017-10-16] MEDS ORDERED: OXYCODONE HCL IR 5 MG TAB (IMMEDIATE RELEASE) PO STA (09:46)
[2017-10-16] MEDS ORDERED: HYDROCODONE/ACETAMIN 5/325MG TAB PO STA (09:54)
[2017-10-16] MEDS ORDERED: CLOP1TAB15 PO (11:12)
--- NOTE | 2017-10-16 11:13 | DIAGNOSTIC IMAGING REPORT ---
R KNEE 3 VIEWS CLINICAL HISTORY: 72 years-old Male presenting with R knee pain. TECHNIQUE: Frontal, lateral, and sunrise views of the right knee were obtained. COMPARISON: 04/19/2012. FINDINGS: Postsurgical changes of total right knee arthroplasty with patellar resurfacing. No patellar subluxation. No gross evidence of a knee joint effusion. No hardware complication. No acute fracture or malalignment. No advanced degenerative change. No radiographic soft tissue abnormality. IMPRESSION: Expected appearance of the total right knee arthroplasty with patellar resurfacing. No hardware complication. No acute osseous injury. Electronically signed by: Sathish Leyva M.D. 10/16/2017 11:12 AM Dictated Date/Time: 10/16/2017 11:10 AM
--- NOTE | 2017-10-16 11:28 | DIAGNOSTIC IMAGING REPORT ---
R VENOUS DOPP LOWER EXT UNILAT CLINICAL HISTORY: 72 years-old Male presenting with RLE pain - eval possible DVT. TECHNIQUE: Real-time grayscale and color and spectral Doppler ultrasound imaging of the veins of the right lower extremity was performed. Compression and augmentation were also utilized. COMPARISON: None. FINDINGS: Right: Common femoral vein: Patent. Greater saphenous vein: Patent. Deep femoral vein: Patent. Femoral vein: Patent. Popliteal vein: Patent. Calf veins: Patent. Other: None. IMPRESSION: No evidence of deep venous thrombosis. Electronically signed by: Sathish Leyva M.D. 10/16/2017 11:27 AM Dictated Date/Time: 10/16/2017 11:25 AM
--- NOTE | 2017-10-16 11:42 | EMERGENCY ROOM VISIT NOTE ---
ED Visit Note First contact with patient: 09:32 This Patient was discussed with the physician purchasing administrative assistant, Domo Reyes PA-C. The pertinent historical and physical exam findings were confirmed. I agree with the studies ordered and with the interpretations of these studies. I agree with the disposition and care plan.
[2017-10-16] MEDS ORDERED: HYDR-5688 PO (11:57)
--- NOTE | 2017-10-16 12:01 | EMERGENCY ROOM VISIT NOTE ---
History First contact with patient: 09:32 Chief Complaint: LEG PAIN,LEG INJURY Stated Complaint: PAIN IN LOWER RT LEG,CANT WALK History of Present Illness The patient is a 72 year old male who presents to the Emergency Room with complaints of right leg pain. The patient reports that he noticed discomfort in his right calf and heel yesterday. This morning, he reports that the pain is more in the calf, back of the knee and thigh. The patient reports that he is currently on Plavix for history of CVA. He also underwent a lumbar laminectomy in July 2017 at [facility]. The patient just returned from [place] for a follow-up with his spine surgeon. Patient also reports a prior history of right knee replacement by Dr. Mendoza. He has had some anterior knee pain as well. He denies any recent trauma to the right lower extremity. He rates his discomfort an 8 out of 10. The patient reports that he has taken Tylenol without relief. He is requesting something stronger for the pain. Review of Systems 10 system review was performed and was negative except for pertinent positives and negatives as indicated in history of present illness Past Medical/Surgical History Medical Problems: (1) CVA (cerebral vascular accident) (2) Diabetes (3) HTN (hypertension) (4) Hyperlipemia (5) Tobacco abuse Surgical Problems: (1) H/O: knee surgery (2) History of lumbar surgery Family History Patient reports no known family medical history. Social History Smoking Status: Never Smoker Alcohol Use: none Drug Use: none Marital Status: Housing Status: lives with family Occupation Status: retired Current/Historical Medications Scheduled Amlodipine (Norvasc), 10 MG PO DAILY Atorvastatin (Lipitor), 40 MG PO DAILY Cholecalciferol (Vitamin D-3), 2,000 UNITS PO DAILY Clopidogrel (Plavix), 75 MG PO DAILY Cyanocobalamin (Vitamin B-12), 1,000 MCG PO DAILY Insulin Glargine (Toujeo Solostar), 55 UNITS SC HS Insulin Lispro 75/25 (Humalog Mix 75/25), 12-17 UNITS SC BID Losartan Potassium (Cozaar), 100 MG PO DAILY Metformin Hcl (Glucophage), 500 MG PO BID Multivitamin (Multivitamin), 1 TAB PO DAILY Scheduled PRN Hydrocodone/Acetaminophen 5MG/325MG (Hermon 5MG/325MG), 1-2 TABLET PO Q4H PRN for Pain Physical Exam Vital Signs Date Time Temp Pulse Resp B/P (MAP) Pulse Ox O2 Delivery O2 Flow Rate FiO2 10/16/17 09:38 36.6 52 16 161/82 93 Room Air Physical Exam CONSTITUTIONAL: Healthy and well nourished. Alert and oriented X 3 with positive affect. Patient appears in mild to moderate discomfort. HEENT: Normocephalic, atraumatic. Pupils equal, round and reactive. NECK: Full active range of motion without discomfort. RESPIRATORY: Clear to auscultation bilaterally with no wheezing, crackles, rhonchi or stridor. CARDIOVASCULAR: Regular rate and rhythm with no murmurs, rubs or gallops. GASTROINTESTINAL: Bowel sounds present in all quadrants. Soft and nontender to palpation. MUSCULOSKELETAL: Examination does not show any obvious discomfort to palpation of the posterior thigh, knee, calf or ankle. Positive straight leg raise. Negative logroll. No joint effusion of the right knee noted, and no significant worsening knee pain with range of motion of the knee. Pedal pulses are intact. INTEGUMENTARY: No rash or other significant dermatologic conditions noted. There is no soft tissue edema, ecchymosis, erythema or increased warmth to palpation of the right lower extremity. NEUROLOGIC: Cranial nerves II-XII grossly intact. No focal neurologic deficits noted. Right foot and toes are sensory intact. Medical Decision & Procedures ER Provider Diagnostic Interpretation: My interpretation of right knee x-rays does not show any obvious fractures or dislocations. There is also no evidence for hardware displacement or bony cement disease. Radiologist report is as follows: R KNEE 3 VIEWS CLINICAL HISTORY: 72 years-old Male presenting with R knee pain. TECHNIQUE: Frontal, lateral, and sunrise views of the right knee were obtained. COMPARISON: 04/19/2012. FINDINGS: Postsurgical changes of total right knee arthroplasty with patellar resurfacing. No patellar subluxation. No gross evidence of a knee joint effusion. No hardware complication. No acute fracture or malalignment. No advanced degenerative change. No radiographic soft tissue abnormality. IMPRESSION: Expected appearance of the total right knee arthroplasty with patellar resurfacing. No hardware complication. No acute osseous injury. Venous ultrasound of the right lower extremity does not show any evidence for deep vein thrombosis. Radiologist report is as follows: R VENOUS DOPP LOWER EXT UNILAT CLINICAL HISTORY: 72 years-old Male presenting with RLE pain - eval possible DVT. TECHNIQUE: Real-time grayscale and color and spectral Doppler ultrasound imaging of the veins of the right lower extremity was performed. Compression and augmentation were also utilized. COMPARISON: None. FINDINGS: Right: Common femoral vein: Patent. Greater saphenous vein: Patent. Deep femoral vein: Patent. Femoral vein: Patent. Popliteal vein: Patent. Calf veins: Patent. Other: None. IMPRESSION: No evidence of deep venous thrombosis. Medications Administered Medications (Trade) Dose Ordered Sig/Mat Route Start Time Stop Time Status Last Admin Dose Admin Acetaminophen/ Hydrocodone Bitart (Hermon 5/325 Tab) 1 tab ONE STAT PO 10/16/17 09:54 10/16/17 09:55 DC 10/16/17 10:06 1 TAB ED Course Patient history and physical exam were performed. Nurse's notes were reviewed. Vital signs were reviewed and were normal. The patient did request something for pain, but refuses oxycodone. His is also concerned about hydrocodone. I did discuss other alternatives, including Tylenol, Ultram and Tylenol with Codeine. The patient requested whichever one was stronger. I did suggest trying Hermon, and the patient and are in agreement. The patient was administered Hermon 5/325. Venous ultrasound of the right lower extremity does not show any evidence for DVT. X-rays of the right knee were also normal. The patient was also evaluated by Dr. Florentino, ED attending physician, who agrees with workup and plan of care. The patient was provided a prescription for Hermon. He was instructed to follow-up with his PCP for further reevaluation and management. The patient was encouraged to avoid sitting for long periods of time. He was instructed to return to the emergency department for any progressively worsening pain or skin changes of the right lower extremity. The patient was happy with plan of care, voiced understanding of all discharge instructions, and rated his pain a 5 out of 10 at the time of discharge with his . Medical Decision History and physical exam findings are most consistent with an acute sciatica. Patient does not have any evidence for DVT on ultrasound. He has no skin changes consistent with soft tissue trauma or cellulitis. [facility] Drug Monitoring Program Search Results: patient reviewed within database, no issues identified Medication Reconcilliation Current Medication List: was personally reviewed by me Blood Pressure Screening Patient's blood pressure: Normal blood pressure Impression Primary Impression: Right sided sciatica Departure Information Prescriptions Hydrocodone/Acetaminophen 5MG/325MG (Hermon 5MG/325MG) Tab 1-2 TABLET PO Q4H Y for Pain, #15 TAB For Initial Treatment Prov: Jose Reyes PA 10/16/17 Referrals Brando Bourgeois M.D. (PCP) Patient Instructions My [facility]
[2017-10-16 12:13] VITALS: BP 145/82; PULSE 56; O2SAT 98
== END 2017-10-16 12:14 | disposition home or self-care (01) ==
LOC: C.EDB 09:25
DX: M54.31 Sciatica, right side (principal); M79.661 Pain in right lower leg; I10 Essential (primary) hypertension; E11.9 Type 2 diabetes mellitus without complications; E78.5 Hyperlipidemia, unspecified; Z79.01 Long term (current) use of anticoagulants; Z79.4 Long term (current) use of insulin; Z79.84 Long term (current) use of oral hypoglycemic drugs; Z79.899 Other long term (current) drug therapy; Z86.73 Personal history of transient ischemic attack (TIA), and cerebral infarction without residual deficits; Z96.651 Presence of right artificial knee joint

== ENCOUNTER → 2017-10-28 | Outpatient (CLI) | payer BC ==
[~2017-10-28] MED LIST changes: +CLOP1TAB15 PO; +HYDR-5688 PO
--- NOTE | 2017-10-28 15:06 | DIAGNOSTIC IMAGING REPORT ---
LUMBAR SPINE W/O CONTRAST CLINICAL HISTORY: 72 years-old Male presenting with recent L3 and L5 laminectomy, pain since surgery, unable to walk, bilateral leg weakness, some arm weakness, discharged yesterday. TECHNIQUE: Multisequence, multiplanar MR imaging of the lumbar spine was performed without the use of intravenous contrast. IV contrast: None. COMPARISON: 08/01/2017. FINDINGS: Localizer images: Bladder wall thickening may indicate chronic outlet obstruction. Postsurgical changes of L3-L5 laminectomies. The operative bed demonstrates resolution of the previously noted fluid collection. There is granulation tissue as well as scant residual fluid along the thecal sac (series 5 image 21; series 2 image 8). No focal fluid collection within the superficial incision site. Adequate posterior decompression at the operative levels. Normal lumbar lordosis. Vertebral bodies maintain normal height, alignment, and bone marrow signal intensity. Disc desiccation without significant height loss noted from L3-4 through L5-S1. Multilevel degenerative changes further detailed below: L1-2: No significant neural foraminal or spinal canal narrowing. L2-3: No significant neural foraminal or spinal canal narrowing despite the presence of facet arthropathy. L3-4: Minimal disc bulge and facet arthropathy result in mild bilateral neural foraminal narrowing. No significant spinal canal narrowing. L4-5: Disc bulge is similar to prior exam with effacement of the anterior thecal sac and in combination with facet arthropathy resulting in moderate bilateral neural foraminal narrowing. L5-S1: Minimal disc bulge. This results in moderate right and mild left neural foraminal narrowing. No significant spinal canal narrowing. Spinal cord ends in good position above the level of L1. Cauda equina normal morphology. Postsurgical changes in the paraspinal soft tissues as mentioned above. Remaining soft tissues within normal limits. IMPRESSION: 1. Postsurgical changes of L3-L5 laminectomies with near complete resolution of the previously noted epidural fluid collection in the laminectomy bed. Expected postsurgical changes with adequate posterior decompression. 2. Mild degenerative changes with multilevel neural foraminal narrowing as detailed above most significant at L4-5. These findings have not changed significantly since the prior exam. Electronically signed by: Sathish Leyva M.D. 10/28/2017 3:05 PM Dictated Date/Time: 10/28/2017 2:56 PM
== END | disposition home or self-care (01) ==
LOC: C.MRIBC 13:57
PROVIDERS: ATTEND Internal Medicine Geriatric Medicine
DX: M54.16 Radiculopathy, lumbar region (principal); M99.73 Connective tissue and disc stenosis of intervertebral foramina of lumbar region

== ENCOUNTER → 2018-01-14 | Outpatient (CLI) | payer BC ==
[~2018-01-14] MED LIST changes: -AMLO-114 PO; +ANT25 PO; -ATOR-24 PO; -CLOP1TAB15 PO; -HMLI7525 SC; -HYDR-5688 PO; +INSU100I2 SC; +LOSA100T65 PO; -LOSA1TAB38 PO; +LPT40 PO; +NRN100 PO; +NRV/10 PO; +PLV75 PO; +ULT50 PO
[2018-01-14 13:08] LABS: BASO % 0.6 %; BASO ABS # 0.03 K/uL (0-0.2); EOS % 3.4 %; EOS ABS # 0.18 K/uL (0-0.5); HEMATOCRIT 41.8 % (42-52); HEMOGLOBIN 13.5 g/dL (14.0-18.0); LYMPH % 45.7 %; LYMPH ABS # 2.41 K/uL (1.2-3.4); MEAN CELL VOLUME 93.3 fL (80-100); MEAN CORPUSCULAR HEMOGLOBIN 30.1 pg (25-34); MEAN CORPUSCULAR HGB CONC 32.3 g/dl (32-36); MEAN PLATELET VOLUME 10.7 fL (7.4-10.4); MONO % 7.6 %; NEUT % 42.7 %; NEUT ABS # 2.25 K/uL (1.4-6.5); PLATELET COUNT 176 K/uL (130-400); RED CELL DISTRIBUTION WIDTH CV 13.9 % (11.5-14.5); RED CELL DISTRIBUTION WIDTH SD 47.6 fL (36.4-46.3); WHITE BLOOD COUNT 5.27 K/uL (4.8-10.8)
[2018-01-14 13:41] LABS: BLOOD UREA NITROGEN 16 mg/dl (7-18); CALCIUM 10.2 mg/dl (8.5-10.1); CARBON DIOXIDE 24 mmol/L (21-32); CREATININE 1.12 mg/dl (0.60-1.40); GLUCOSE 98 mg/dl (70-99); SODIUM 142 mmol/L (136-145)
[2018-01-14 13:54] LABS: HEMOGLOBIN A1C 8.1 % (4.5-5.6)
== END | disposition home or self-care (01) ==
LOC: C.LABPBG 08:32
PROVIDERS: ATTEND Nurse Practitioner Family
DX: I10 Essential (primary) hypertension (principal); D64.9 Anemia, unspecified; E11.9 Type 2 diabetes mellitus without complications

== ENCOUNTER → 2018-01-20 | Day surgery (SDC) | payer BC ==
[2018-01-17 09:32] VITALS: Ht 175.3 cm; Wt 95.5 kg
[~2018-01-20] VITALS: Ht 175.3 cm; Wt 95.5 kg
[~2018-01-20] MED LIST changes: -CHOL200027 PO; +GABA-112 PO; +LIDOCAINE HCL 1% MPF 5 ML VIAL ONE; +SODIUM CHLORIDE 0.9% INJ 10 ML VIAL ONE
--- NOTE | 2018-01-20 14:26 | History & Physical Bridge - SC ---
H&P Re-Evaluation Bridge Note: I have examined the patient, reviewed the History & Physical and in the interval since the performance of the History & Physical I have noted the following changes of clinical significance: No changes noted
--- NOTE | 2018-01-20 14:44 | [facility] Post Operative Brief Note ---
Immediate Operative Summary Operative Date Jan 20, 2018. Pre-Operative Diagnosis L5-S1 HNP. RIGHT S1 RADICULOPATHY. Post-Operative Diagnosis L5-S1 HNP. RIGHT S1 RADICULOPATHY. Procedure(s) Performed CAUDAL EPIDURAL STEROID INJECTION. Surgeon DR. Aashish FERRARO [employer] Director Surgeon(s) None Estimated Blood Loss 0 Findings Consistent with Post-Op Diagnosis Specimens NA Anesthesia Type Local Complication(s) none Disposition Disposition:
[2018-01-20 14:46] VITALS: BP 132/66; PULSE 60; TEMP 36.5; O2SAT 96
--- NOTE | 2018-01-20 14:46 | Discharge Instructions ---
Discharge Instructions Date of Service Jan 20, 2018. Visit Reason for Visit: Sacral & Sacrococcygeal Radiculopathy Discharge Discharge Diagnosis / Problem: leg pain Discharge Goals Goal(s): Decrease discomfort, Improve function Activity Recommendations Activity Limitations: resume your previous activity Anesthesia . Post Anesthesia Instructions: If you have had General Anesthesia or IV Sedation: * Do not drive today. * Resume driving when surgeon permits. * Do not make important decisions or sign legal documents today. * Call surgeon for: 1. Temperature elevations greater than 101 degrees F. 2. Uncontrollable pain. 3. Excessive bleeding. 4. Persistent nausea and vomiting. 5. Medication intolerance (nausea, vomiting or rash). * For nausea and vomiting use only clear liquids such as: tea, soda, bouillon until nausea subsides, then gradually increase diet as tolerated. * If you have any concerns or questions, call your surgeon's office. If physician is unavailable and it is an emergency, call 911 or go to the nearest emergency room. . Diet Recommendations Recommended Home Diet: no limitations Procedures Procedures Performed: CAUDAL EPIDURAL STEROID INJECTION. Pending Studies Studies pending at discharge: no Medical Emergencies . Who to Call and When: Medical Emergencies: If at any time you feel your situation is an emergency, please call 911 immediately. . Non-Emergent Contact Non-Emergency issues call your: Specialist . . "Provider Documentation" section prepared by Wilfredo Johnson. .
--- NOTE | 2018-01-20 15:14 | OPERATIVE REPORT ---
DATE OF OPERATION: 01/20/2018 PREOPERATIVE DIAGNOSIS: L5-S1 herniated nucleus pulposus, history of an L4-L5 decompressive laminectomy with a right S1 radiculopathy. POSTOPERATIVE DIAGNOSIS: Same. PROCEDURE: Caudal epidural steroid injection under fluoroscopic guidance. INDICATIONS: Patient is a 72-year-old white male who underwent a lumbar decompression which required hematoma removal and did well for 2 months, now has increasing pain radiating down the leg. MRI reveals a disk herniation at L5-S1 on the right side coming in close contact with the nerve roots in this region. Decision was made to do a caudal epidural injection to try to provide him with relief of radicular pain down the right leg. PHYSICAL EXAMINATION: GENERAL: Pleasant male, seated comfortably. MUSCULOSKELETAL: Lumbar paraspinal muscles are palpated. Incision is well healed. He has no discomfort related to the incisional area. He has soreness in the right sciatic notch. He has limitations with flexion and extension, but they are not painful, more balance related. No focal weakness in lower extremities. Negative seated straight leg raises. CONSENT: Verbal and written consent was obtained from the patient. Risks and benefits reviewed. Risks include but are not limited to abscess and allergic reaction. Patient wishes to proceed. DESCRIPTION OF PROCEDURE: Patient was taken back to the special procedures room of the [facility] where he was maintained in a prone position. Backside was cleansed with Betadine x3, and a dry sterile dressing was applied. Fluoroscope was used to identify the sacral hiatus, and overlying skin was anesthetized with 4 mL of lidocaine 1% over a 25 gauge 1-1/2-inch needle. A 25 gauge 3-1/2 inch spinal needle was then directed down toward sacral canal and advanced through the sacral hiatus and into the canal under lateral fluoroscopic guidance. He then underwent injection after negative aspiration of 4 mL of preservative free sodium chloride and 40 mg Depo-Medrol. Injection was well tolerated. DISPOSITION: 1. Patient is taken out to the discharge recovery area from where he will be discharged home once his discharge criteria met. 2. Follow up in the [facility] office in 4 weeks' time. I attest to the content of the Intraoperative Record and any orders documented therein. Any exception s are noted below.
== END | disposition home or self-care (01) ==
LOC: X.SURG 13:04
PROVIDERS: ATTEND Physical Medicine & Rehabilitation
DX: M54.18 Radiculopathy, sacral and sacrococcygeal region (principal); M51.27 Other intervertebral disc displacement, lumbosacral region; E11.9 Type 2 diabetes mellitus without complications; Z79.4 Long term (current) use of insulin; Z96.653 Presence of artificial knee joint, bilateral

== ENCOUNTER 2018-01-24 09:27 | Emergency (ER) | payer BC ==
[~2018-01-24] VITALS: Ht 175.3 cm; Wt 98.3 kg
[~2018-01-24 09:27] MED LIST changes: -GABA-112 PO; -LIDOCAINE HCL 1% MPF 5 ML VIAL ONE; -SODIUM CHLORIDE 0.9% INJ 10 ML VIAL ONE
[2018-01-24 09:30] VITALS: TEMP 36.6; Ht 175.3 cm; Wt 98.3 kg
[2018-01-24] MEDS ORDERED: GABA-112 PO (10:03)
[2018-01-24 10:06] LABS: BASO % 0.2 %; BASO ABS # 0.01 K/uL (0-0.2); EOS % 6.6 %; EOS ABS # 0.32 K/uL (0-0.5); HEMATOCRIT 38.6 % (42-52); HEMOGLOBIN 12.8 g/dL (14.0-18.0); IG# 0.01 K/uL (0.00-0.02); LYMPH % 31.2 %; LYMPH ABS # 1.51 K/uL (1.2-3.4); MEAN CELL VOLUME 92.3 fL (80-100); MEAN CORPUSCULAR HEMOGLOBIN 30.6 pg (25-34); MEAN CORPUSCULAR HGB CONC 33.2 g/dl (32-36); MEAN PLATELET VOLUME 10.1 fL (7.4-10.4); MONO % 10.1 %; MONO ABS # 0.49 K/uL (0.11-0.59); NEUT % 51.7 %; PLATELET COUNT 168 K/uL (130-400); RED CELL DISTRIBUTION WIDTH CV 13.8 % (11.5-14.5); RED CELL DISTRIBUTION WIDTH SD 46.3 fL (36.4-46.3); WHITE BLOOD COUNT 4.84 K/uL (4.8-10.8)
[2018-01-24 10:23] LABS: CALCIUM 9.4 mg/dl (8.5-10.1); CREATININE 1.13 mg/dl (0.60-1.40); POTASSIUM 4.3 mmol/L (3.5-5.1)
--- NOTE | 2018-01-24 12:10 | DIAGNOSTIC IMAGING REPORT ---
R VENOUS DOPP LOWER EXT UNILAT CLINICAL HISTORY: rle swelling pain. Edema. TECHNIQUE: Venous Doppler COMPARISON STUDY: None FINDINGS: Normal study IMPRESSION: Normal study The above report was generated using voice recognition software. It may contain grammatical, syntax or spelling errors. Electronically signed by: Dragan Wick M.D. 01/24/2018 12:09 PM Dictated Date/Time: 01/24/2018 12:09 PM
[2018-01-24 12:33] VITALS: BP 145/86; PULSE 56; O2SAT 94
--- NOTE | 2018-01-24 15:37 | EMERGENCY ROOM VISIT NOTE ---
History Report prepared by Criselda: Yo Canas Under the Supervision of: Dr. Deshaun Mclean D.O. First contact with patient: 09:36 Chief Complaint: LEG PAIN,LEG INJURY Stated Complaint: RT LEG SWELLING AND PAIN History of Present Illness The patient is a 72 year old male who presents to the Emergency Room with complaints of constant leg pain beginning October 15 and swelling in the right calf beginning 2 days ago. The patient reports that he had a laminectomy in July by Dr. García in [place]. He states that prior to his surgery, he was experiencing very similar pain to his current symptoms in the right calf. He notes that the pain went away after his surgery, but returned on October 15. He also notes pain in the right hip joint. He states that he is on Plavix due to a history of stroke and baby aspirin. He reports that his pain is improved with lying down. Pt denies headache, change in vision, fevers, chest pain, shortness of breath, nausea, vomiting, diarrhea, pain with urination, and melena. Source of History: patient Onset: October 15 (pain), 2 days ago (swelling) Position: leg (right calf) Timing: constant Modifying Factors (Relieving): other (lying down) Note: pain in the right hip joint Review of Systems See HPI for pertinent positives & negatives. A total of 10 systems reviewed and were otherwise negative. Past Medical & Surgical Medical Problems: (1) CVA (cerebral vascular accident) (2) Diabetes (3) HTN (hypertension) (4) Hyperlipemia (5) TIA (transient ischemic attack) (6) Tobacco abuse Surgical Problems: (1) H/O: knee surgery (2) History of lumbar surgery Family History Patient reports no known family medical history. Social History Smoking Status: Never Smoker Alcohol Use: none Drug Use: none Marital Status: Housing Status: lives with family Occupation Status: retired Current/Historical Medications Scheduled Amlodipine Besylate (Amlodipine Besylate), 10 MG PO DAILY Atorvastatin (Lipitor), 40 MG PO DAILY Clopidogrel Bisulfate (Clopidogrel), 75 MG PO DAILY Cyanocobalamin (Vitamin B-12), 1,000 MCG PO DAILY Gabapentin (Gabapentin), 100 MG PO QAM Gabapentin (Neurontin), 200 MG PO QPM Insulin Glargine (Toujeo Solostar), 55 UNITS SC HS Insulin Lispro (Human) (Humalog Kwikpen), 1 DOSE SC WITH MEALS Losartan Potassium (Cozaar), 100 MG PO DAILY Metformin Hcl (Glucophage), 500 MG PO BID Multivitamin (Multivitamin), 1 TAB PO DAILY Tramadol HCl (Tramadol HCl), 50 MG PO QAM Scheduled PRN Meclizine HCl (Meclizine HCl), 25 MG PO Q8 PRN for Dizziness or Vertigo Allergies Coded Allergies: No Known Allergies (Verified , 01/20/18) Physical Exam Vital Signs Date Time Temp Pulse Resp B/P (MAP) Pulse Ox O2 Delivery O2 Flow Rate FiO2 01/24/18 12:33 56 18 145/86 94 Room Air 01/24/18 10:49 55 18 129/75 95 Room Air 01/24/18 09:30 36.6 63 18 162/99 99 Room Air Physical Exam GENERAL: Sitting up in bed, alert, well appearing, well nourished, no distress, non-toxic EYE EXAM: normal conjunctiva. OROPHARYNX: no exudate, no erythema, lips, buccal mucosa, and tongue normal and mucous membranes are moist NECK: supple, no nuchal rigidity, no adenopathy, non-tender LUNGS: Clear to auscultation. Normal chest wall mechanics HEART: no murmurs, S1 normal and S2 normal ABDOMEN: abdomen soft, non-tender, normo-active bowel sounds, no masses, no rebound or guarding. SKIN: no rashes and no bruising UPPER EXTREMITIES: upper extremities are grossly normal. LOWER EXTREMITIES: The right calf is larger than the left, and there is minimal tenderness to the right lateral calf. Full ROM of the hips, knees, and ankles is appreciated. There is bruising over the 3rd right toe and on the right lateral foot. Distal pulses 2/4. NEURO EXAM: Normal sensorium, cranial nerves II-XII grossly intact, normal speech, no gross weakness of arms, no gross weakness of legs. Gross sensation intact. Medical Decision & Procedures ER Provider Diagnostic Interpretation: Radiology results as stated below per my review and the radiologist's interpretation: R VENOUS DOPP LOWER EXT UNILAT CLINICAL HISTORY: rle swelling pain. Edema. TECHNIQUE: Venous Doppler COMPARISON STUDY: None FINDINGS: Normal study IMPRESSION: Normal study The above report was generated using voice recognition software. It may contain grammatical, syntax or spelling errors. Electronically signed by: Dragan Wick M.D. 01/24/2018 12:09 PM Dictated Date/Time: 01/24/2018 12:09 PM Laboratory Results 01/24/18 09:55 Red Blood Count 4.18, Mean Corpuscular Volume 92.3, Mean Corpuscular Hemoglobin 30.6, Mean Corpuscular Hemoglobin Concent 33.2, Mean Platelet Volume 10.1, Neutrophils (%) (Auto) 51.7, Lymphocytes (%) (Auto) 31.2, Monocytes (%) (Auto) 10.1, Eosinophils (%) (Auto) 6.6, Basophils (%) (Auto) 0.2, Neutrophils # (Auto ) 2.50, Lymphocytes # (Auto) 1.51, Monocytes # (Auto) 0.49, Eosinophils # (Auto ) 0.32, Basophils # (Auto) 0.01 01/24/18 09:55 Test 01/24/18 09:55 White Blood Count 4.84 K/uL (4.8-10.8) Red Blood Count 4.18 M/uL (4.7-6.1) Hemoglobin 12.8 g/dL (14.0-18.0) Hematocrit 38.6 % (42-52) Mean Corpuscular Volume 92.3 fL (80-100) Mean Corpuscular Hemoglobin 30.6 pg (25-34) Mean Corpuscular Hemoglobin Concent 33.2 g/dl (32-36) Platelet Count 168 K/uL (130-400) Mean Platelet Volume 10.1 fL (7.4-10.4) Neutrophils (%) (Auto) 51.7 % Lymphocytes (%) (Auto) 31.2 % Monocytes (%) (Auto) 10.1 % Eosinophils (%) (Auto) 6.6 % Basophils (%) (Auto) 0.2 % Neutrophils # (Auto) 2.50 K/uL (1.4-6.5) Lymphocytes # (Auto) 1.51 K/uL (1.2-3.4) Monocytes # (Auto) 0.49 K/uL (0.11-0.59) Eosinophils # (Auto) 0.32 K/uL (0-0.5) Basophils # (Auto) 0.01 K/uL (0-0.2) RDW Standard Deviation 46.3 fL (36.4-46.3) RDW Coefficient of Variation 13.8 % (11.5-14.5) Immature Granulocyte % (Auto) 0.2 % Immature Granulocyte # (Auto) 0.01 K/uL (0.00-0.02) Prothrombin Time 10.5 SECONDS (9.0-12.0) Prothromb Time International Ratio 1.0 (0.9-1.1) Anion Gap 7.0 mmol/L (3-11) Est Creatinine Clear Calc Drug Dose 68.3 ml/min Estimated GFR () 74.8 Estimated GFR (Non- 64.6 BUN/Creatinine Ratio 14.4 (10-20) Calcium Level 9.4 mg/dl (8.5-10.1) Laboratory results per my review. ED Course ED COURSE: Vital signs were reviewed and showed hypertension that was felt to be situational. The patients medical record was reviewed The above diagnostic studies were performed and reviewed. ED treatments and interventions as stated above. 0940: The patient was evaluated in room A4B. A complete history and physical examination was performed. 1220: Upon reevaluation, the patient is resting. I discussed my findings with the him and he understands and agrees with the treatment plan. Based on the patients age, coexisting illnesses, exam and lab findings the decision to treat as an outpatient was made. The patient remained stable while under my care. The patient appeared well at the time of discharge. Medical Decision Differential diagnosis: Etiologies such as DVT, musculoskeletal, infection, joint effusion, trauma, lymphedema, idiopathic, CHF, as well as others were entertained. Patient is a 72-year-old male who presents to the ER for right calf pain which has been present since October. Patient notes that it went away for 2 months after his back surgery but then returned and is the same pain. Notes daughter has noticed right calf is larger than left. On exam and is consistently larger. Duplex is negative. CBC and BMP were unremarkable. Nothing to suggest CHF. Patient was updated at bedside and discharge follow-up with PCP as an outpatient. Discussed with Pt concerning signs and symptoms to watch out for. Pt was instructed to follow up with their PCP and discussed with the patient their option to return to the ED at anytime for persistent or worsening symptoms. The appropriate anticipatory guidance and out-patient management, including indications for return to the emergency department, were explained at length to the patient and understood. Medication Reconcilliation Current Medication List: was personally reviewed by me Blood Pressure Screening Patient's blood pressure: Elevated blood pressure Blood pressure disposition: Elevated BP felt to be situational Impression Primary Impression: Leg pain, right Scribe Attestation The scribe's documentation has been prepared under my direction and personally reviewed by me in its entirety. I confirm that the note above accurately reflects all work, treatment, procedures, and medical decision making performed by me. Departure Information Dispostion Home / Self-Care Referrals Brando Bourgeois M.D. (PCP) Forms HOME CARE DOCUMENTATION FORM, IMPORTANT VISIT INFORMATION Patient Instructions My [facility] Additional Instructions Please follow up with your primary care doctor with in the next 24 hours. Any worsening of your symptoms, please return to the ED immediately. This includes any fevers greater than 100.4, worsening pain, chest pain, shortness breath, persistent nausea, vomiting, unable to eat or drink, weakness or numbness in her arms legs, or any other concerning signs or symptoms from your standpoint. Please take Tylenol or Motrin as needed for pain. Please make sure as stated above the follow-up with your PCP.
== END 2018-01-24 12:44 | disposition home or self-care (01) ==
LOC: C.EDB 09:29 → C.EDA 12:44
DX: M79.604 Pain in right leg (principal); Z86.73 Personal history of transient ischemic attack (TIA), and cerebral infarction without residual deficits; E11.9 Type 2 diabetes mellitus without complications; I10 Essential (primary) hypertension; E78.5 Hyperlipidemia, unspecified; Z79.82 Long term (current) use of aspirin; Z79.02 Long term (current) use of antithrombotics/antiplatelets; Z79.4 Long term (current) use of insulin; Z79.899 Other long term (current) drug therapy

== ENCOUNTER → 2018-01-31 | Outpatient (CLI) | payer BC ==
[~2018-01-31] MED LIST changes: +GABA-112 PO
--- NOTE | 2018-01-31 12:40 | DIAGNOSTIC IMAGING REPORT ---
R ANKLE MIN 3 VIEWS ROUTINE CLINICAL HISTORY: M25.579 right ankle pain COMPARISON: None. DISCUSSION: No fractures or dislocations are visualized. There is mild spurring at the level of the lateral malleolus. Vascular calcifications are evident. There is a plantar calcaneal spur. Irregularity of the anterior calcaneus as visualized in the lateral view, likely represents a projectional artifact. IMPRESSION: 1. No acute fractures or dislocations 2. Plantar calcaneal spur Electronically signed by: Jun Hsu M.D. 01/31/2018 12:38 PM Dictated Date/Time: 01/31/2018 12:35 PM
== END | disposition home or self-care (01) ==
LOC: C.RADBC 12:04
PROVIDERS: ATTEND Physician Assistant Medical
DX: M25.579 Pain in unspecified ankle and joints of unspecified foot (principal)